=== PATIENT | female | born 1960 | race Caucasian/White ===

== ENCOUNTER 2019-05-18 08:32 | Inpatient (IN) | payer MEDICAID, SELFPAY ==
[2019-05-18 08:33] VITALS: BP 150/121; PULSE 103; RESP 20; TEMP 36.5; O2SAT 93; BMI 27.4
--- NOTE | 2019-05-18 08:39 | ED_ITS ---
Entered by Conrado De Anda, acting as scribe for Js Benavides DO HPI - Psych General: Chief Complaint: Psychiatric Symptoms Stated Complaint: stress Time Seen by Provider: 05/18/19 08:37 History of Present Illness: HPI Narrative: 58 yo female presents with stress. Pt has been off of her medications. Pt is agitated. Pt states that she is having a tantrum right now. Pts feels like everyone in her room could be her murder. Pt has rambling thoughts. Pt states that she is refusing for us to give her anything until she feels safe. Pt states that she doesn't want to harm anyone but feels like people are going to harm her. Pt is refusing for us to check her out. Pt states that she is scared to stay in her appartment because of poltergeist. complaint: feels depressed Onset (ago): week(s) Associated psychiatric symptoms: depression and racing thoughts Associated symptoms: Reports delusions, depression and racing thoughts Review of Systems Const: Denies: fever, chills, body aches, fatigue, malaise or night sweats Eyes: Denies: change in vision or blurry vision ENMT: Denies: throat pain, oral sores/lesions, dental pain, nasal discharge or nasal congestion Card: Denies: chest pain, palpitations, irregular heart rhythm, edema, sy ncope, shortness of breath on exertion, shortness of breath when lying down or leg pain with exertion Resp: Denies: shortness of breath, productive cough, non-productive cough or wheezing GI: Denies: abdominal pain, nausea, vomiting, vomiting blood, coffee grounds in vomit, difficulty swallowing, heartburn/indigestion, diarrhea, constipation, cramping, blood in stool or black tarry stool : Reports: flank pain and painful urination; Denies: urinary frequency, urinary urgency, urinary incontinence or blood in urine Musc: Denies: neck pain, back pain, extremity pain, extremity swelling, joint pain or joint swelling Skin/Breast: Denies: rash, itching or redness Psych: Reports: anxiety, depression, mood swings and paranoia Endo: Denies: excessive urination, excessive thirst, tired all the time or cold intolerance Berhane/Lymph: Denies: easy bruising, easy bleeding, petechiae, enlarged lymph nodes or tender lymph nodes PFSH ED PFSH: Statuses (acute, chronic, etc) shown below reflect problem list status as previously entered and may not be historically accurate Medical History Bipolar 1 disorder (Acute) COPD (chronic obstructive pulmonary disease) (Acute) DVT (deep venous thrombosis) (Acute) Hypercholesteremia (Acute) Surgical History H/O foot surgery (Acute) History of bladder surgery (Acute) Social History Smoking and tobacco status: current every day smoker Physical Exam Const: COMMON NORMALS: average body habitus; negative for oriented x3 GENERAL APPEARANCE: cooperative and comfortable; not well kempt ORIENTATION/CONSCIOUSNESS: Yes awake, Yes oriented to person and Yes oriented to place HENMT: COMMON NORMALS: normocephalic, head/scalp atraumatic, EAC's normal, TM's normal bilaterally, external nose normal, moist oral mucous membranes and oropharynx normal HEAD & SCALP: normocephalic and atraumatic NOSE: external nose normal EXTERNAL AUDITORY CANAL: EAC's normal TYMPANIC MEMBRANE: TM's normal bilaterally MOUTH: oral and palatal mucosa normal, lip normal and tongue normal THROAT: posterior oropharynx normal and tonsils normal Eye: COMMON NORMALS: PERRL, EOMs intact bilaterally, conjunctivae normal and no scleral icterus CONJUNCTIVA: Yes conjunctivae normal PUPIL: Yes PERRL Neck/C-Spine: COMMON NORMALS: full ROM, no lymphadenopathy, supple, no meningeal signs and thyroid normal THYROID: thyroid normal and asymmetrical Lymph: LYMPHATIC: no lymphadenopathy noted Resp: COMMON NORMALS: normal respiratory effort, no retractions, no use of accessory muscles and clear to auscultation bilaterally AUSCULTATION: clear to auscultation bilaterally Cardio: COMMON NORMALS: regular rate and regular rhythm RATE: regular rate RHYTHM: regular rhythm HEART SOUNDS: no murmurs GI: COMMON NORMALS: normal to inspection, nondistended, normoactive bowel sounds, soft to palpation and no hepatosplenomegaly PALPATION: Yes soft and Yes no hepatosplenomegaly : COMMON NORMALS: Yes no CVA tenderness BLADDER/KIDNEY EXAM: Yes no CVA tenderness Back/Pelvis: COMMON NORMALS: no CVA tenderness LUMBAR SPINE/LOWER BACK: Yes normal to inspection Extremity: COMMON NORMALS: no clubbing, cyanosis or edema, no calf tenderness and no pedal edema Neuro: COMMON NORMALS: negative for oriented x3 SENSORIUM/ORIENTATION: Yes oriented to person and Yes oriented to place MENINGEAL SIGNS: Yes no me ningeal signs Psych: APPEARANCE: No well kempt ATTITUDE: Yes paranoid and Yes uncooperative MOOD & AFFECT: Yes depressed mood, Yes anxious, Yes fearful and Yes hostile affect THOUGHT PROCESS: flight of ideas THOUGHT CONTENT: Yes delusion(s) INSIGHT: limited JUDGEMENT: limited Skin: COMMON NORMALS: no rashes or lesions noted and skin turgor normal GENERAL SKIN EXAM: no rashes or lesions noted and turgor normal MDM - Psych Lab Data: Labs: Lab Results 05/18/19 05/18/19 Range/Units 09:16 09:16 WBC 5.7 (4.0-10.0) 10^3/ uL RBC 4.88 (4.1-5.3) 10^6/u L Hgb 13.1 (11.5-15.3) g/dL Hct 41.0 (37.0-47.0) % MCV 84.0 (81-99) fL MCH 26.8 L (28.0-34.0) pg MCHC 32.0 (30.0-36.0) g/dL RDW 13.8 (12.1-15.1) % Plt Count 198 (130-400) 10^3/c mm MPV 9.9 (7.4-10.4) fL Neut % (Auto) 58.1 % Lymph % (Auto) 28.9 % Archuleta % (Auto) 10.5 % Eos % (Auto) 1.2 % Baso % (Auto) 1.1 % Neut # (Auto) 3.3 (1.8-7.7) 10^3/u L Lymph # (Auto) 1.7 (0.8-4.8) 10^3/u L Archuleta # (Auto) 0.6 (0.2-0.9) 10^3/u L Eos # (Auto) 0.1 (0.0-0.8) 10^3/u L Baso # (Auto) 0.1 (0.0-0.1) 10^3/u L Nucleated RBC % (a uto) 0 % Nucleated RBCs # 0.0 /100WBC Sodium 143 (136-145) mmol/L Potassium 3.3 L (3.5-5.1) mmol/L Chloride 104 (98-107) mmol/L Carbon Dioxide 28 (22-29) mmol/L Anion Gap 14.3 (5-19) BUN 8 (6-20) mg/dL Creatinine 0.9 (0.5-0.9) mg/dL GFR Calculation 64.1 L (90-130) mL/min Glucose 124 H (74-109) mg/dL Calcium 9.4 (8.6-10.0) mg/Dl Total Bilirubin 0.3 (0.15-1.2) mg/dL AST 36 H (0-32) U/L ALT 65 H (0-33) U/L Alkaline Phosphata se 85 (35-105) IU/L Total Protein 6.4 L (6.6-8.7) g/dL Albumin 4.3 (3.5-5.2) g/dL Globulin 2.1 (1.3-4.6) g/dL TSH 1.98 (0.27-4.20) uIU/ mL Salicylates < 0.3 L (3-10) mg/dL Acetaminophen < 5.0 L (10-30) ug/mL Ethyl Alcohol < 10 (0-10) mg/dL Discharge Plan Discharge Admit Provider: Giovanni Cruz Clinical Impression: Acute psychosis, Bipolar 1 disorder, Chronic schizophrenia Condition: Stable Coding Level of Care Code ED Laborer Laboratory for Chg Fwd Exam Problem Focused The documentation recorded by the Adilson steiner Kialy, accurately reflects the service I personally performed and the decisions made by , Js Benavides, May 18, 2019 08:32
[2019-05-18 09:24] LABS: Basophils # 0.1 10^3/uL (0.0-0.1); Basophils % 1.1 %; Eosinophils # 0.1 10^3/uL (0.0-0.8); Eosinophils % 1.2 %; Hemoglobin 13.1 g/dL (11.5-15.3); Lymphocytes # 1.7 10^3/uL (0.8-4.8); Lymphocytes % 28.9 %; Mean Corpuscular Hemoglobin 26.8 pg (28.0-34.0); Mean Platelet Volume 9.9 fL (7.4-10.4); Monocytes # 0.6 10^3/uL (0.2-0.9); Monocytes % 10.5 %; Neutrophils # 3.3 10^3/uL (1.8-7.7); Neutrophils % 58.1 %; Nucleated Red Blood Cells % 0 %; Platelet Count 198 10^3/cmm (130-400); Red Blood Count 4.88 10^6/uL (4.1-5.3); Red Cell Distribution Width 13.8 % (12.1-15.1); White Blood Count 5.7 10^3/uL (4.0-10.0)
[2019-05-18 09:52] LABS: Alanine Aminotransferase 65 U/L (0-33); Albumin Level 4.3 g/dL (3.5-5.2); Alkaline Phosphatase 85 IU/L (35-105); Anion Gap 14.3 (5-19); Aspartate Amino Transferase 36 U/L (0-32); Blood Urea Nitrogen 8 mg/dL (6-20); Calcium 9.4 mg/Dl (8.6-10.0); Carbon Dioxide 28 mmol/L (22-29); Chloride 104 mmol/L (98-107); Globulin 2.1 g/dL (1.3-4.6); Glomerular Filtration Rate 64.1 mL/min (90-130); Glucose 124 mg/dL (74-109); Potassium 3.3 mmol/L (3.5-5.1); Sodium 143 mmol/L (136-145); Thyroid Stimulating Hormone 1.98 uIU/mL (0.27-4.20); Total Bilirubin 0.3 mg/dL (0.15-1.2); Total Protein 6.4 g/dL (6.6-8.7)
[2019-05-18 09:57] LABS: Acetaminophen < 5.0 ug/mL (10-30); Alcohol Level < 10 mg/dL (0-10); Salicylate < 0.3 mg/dL (3-10)
[2019-05-18] MEDS: ziprasidone 20 mg/mL SDV 10 MG IM (10:26)
[2019-05-18] MEDS: LORazepam 2 mg/mL INJ 1 mL IM (10:26)
[2019-05-18 12:22] VITALS: RESP 20; TEMP 36.5; O2SAT 93
[2019-05-18 12:36] VITALS: BP 115/76; PULSE 64; RESP 19; TEMP 36.6; O2SAT 94
[2019-05-18 12:47] VITALS: BP 115/76; PULSE 64; RESP 19; TEMP 36.6; O2SAT 94
--- NOTE | 2019-05-18 13:25 | PC.NURSE ---
PATIENT ARRIVED ON UNIT SEDATED. PHYSICAL ASSESSMENT COMPLETED BUT NURSE AND STAFF UNABLE TO ACCOMPLISH ANYTHING ELSE AT THIS TIME.
[2019-05-18 13:34] VITALS: BP 115/76; PULSE 64; RESP 19; TEMP 36.6; O2SAT 94
[2019-05-18] MEDS: nicotine 21 mg Patch 1 PATCH TRANSDERMA (17:23)
[2019-05-18 19:54] VITALS: BP 104/71; PULSE 84; RESP 19; TEMP 36.7; O2SAT 98
[2019-05-18] MEDS: hyDROXYzine 25 mg Capsule 50 MG PO (21:07)
[2019-05-18] MEDS: trazodone 50 mg Tablet PO (21:07)
[2019-05-19 06:00] VITALS: BP 140/81; PULSE 81; RESP 20; TEMP 36.6; O2SAT 97
[2019-05-19] MEDS: OLANZapine ODT 5 MG TABLET PO (10:09)
[2019-05-19] MEDS: hyDROXYzine 25 mg Capsule 50 MG PO (10:21)
--- NOTE | 2019-05-19 10:23 | PC.NURSE ---
PATIENT NOTE: PRN VISTARIL 50MG AND ZYPREXA 5MG GIVEN FOR ANXIETY.
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
[2019-05-19] MEDS: phenazopyridine 100 mg Tablet PO (12:50)
[2019-05-19] MEDS: CLONazepam 1 mg Tablet PO (12:50)
[2019-05-19] MEDS: quetiapine 100 mg Tablet PO ×2 (12:51→18:18)
[2019-05-19 14:00] VITALS: BP 134/85; PULSE 80; RESP 20; TEMP 37.2; O2SAT 96
[2019-05-19] MEDS: nicotine 21 mg Patch 1 PATCH TRANSDERMA (14:35)
[2019-05-19] MEDS: LORazepam 2 mg Tablet PO (18:18)
[2019-05-19 18:35] LABS: Bilirubin Urine 1+ (NEGATIVE); Blood Urine Neg (Negative); Glucose Urine UA Norm (Normal); Ketones Urine Negative (Negative); Nitrate Urine Positive (Negative); Protein Urine Neg (Negative); Urine Appearance Clear (CLEAR); Urine Color Yellow (Yellow); Urobilinogen Urine Norm (Negative); pH Urine 6.5 (5-7)
[2019-05-19 18:36] LABS: Add Urine Microscopic? YES; Leukocyte Esterase Urine Negative (Negative)
--- NOTE | 2019-05-19 18:43 | PC.NURSE ---
PT NOTE: PRN ATIVAN 2 MG GIVEN FOR ANXIETY
[2019-05-19 18:44] LABS: Add Urine Culture? No; Amorphous Sediment Urine TRACE; Bacteria Urine TRACE; Squamous Epithelial Cell Urine 0-4 (0-5); WBC Urine 0-4 /hpf (0-5)
[2019-05-19 18:48] LABS: Amphetamines Screen Urine Negative (Negative); Barbiturates Screen Urine Negative (Negative); Benzodiazepines Screen Urine Negative (Negative); Cocaine Screen Urine Negative (Negative); Opiate Screen Urine Negative (Negative); PCP Screen Urine Negative (Negative); THC Screen Urine Positive (Negative)
[2019-05-19 19:57] VITALS: BP 114/76; PULSE 89; RESP 16; TEMP 36.6; O2SAT 96
[2019-05-20 06:00] VITALS: BP 114/74; PULSE 86; RESP 18; TEMP 36.6; O2SAT 95
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
[2019-05-20] MEDS: quetiapine 100 mg Tablet 200 MG PO ×2 (09:20→14:43)
[2019-05-20] MEDS: ibuprofen 600 mg Tablet PO ×2 (10:50→18:28)
[2019-05-20] MEDS: blistex lip oint 7 gm Tube 1 APPLIC TOPICAL ×2 (11:44→20:50)
[2019-05-20 13:34] VITALS: BP 97/65; PULSE 102; RESP 20; TEMP 36.8; O2SAT 99
[2019-05-20] MEDS: ropinirole 0.25 mg Tablet PO ×2 (14:43→20:50)
[2019-05-20] MEDS: nicotine 21 mg Patch 1 PATCH TRANSDERMA (15:11)
--- NOTE | 2019-05-20 18:13 | PC.NURSE ---
PT VOICED TO STAFF THAT HER LEGS AND FEET WERE SWELLED UP AND PT WANTING SOMETHING FOR THIS. WORT EXTRACTOR ASSESSED PT FEET AND LEGS. NOTED SCANT EDEMA TO BILATERAL LEGS AND PUFFINESS TO BILATERAL FT,BUT NO PITTING EDEMA NOTED. PATIENT'S FEET COOL TO TOUCH AND PT HAS BEEN UP ALL DAY ON HER FT. LCTA ,RESP EVEN AND UNLABORED. NO SOB NOTED. PT ASKING FOR PRN MOTRIN,AND WORT EXTRACTOR ENCOURAGED PT TO KEEP FT ELEVATED. WILL CONT TO MONITOR AND FOLLOW UP NEEDED
--- NOTE | 2019-05-20 18:35 | PC.NURSE ---
PT YELLING IN HER ROOM THAT SHE NEEDS TO GO TO THE EMERGENCY ROOM BECAUSE SHE FEELS SHE HAS BLOOD POISONING IN HER FEET AND LEGS. BP 136/90-99-98.9- SAT 97 %. REQUESTING FOR DR TO BE CALLED SO SHE CAN GET A MEDICAL DR TO COME AND SEE HER. WILL CONTACT DR MURRAY. AWAITING CALL BACK.
[2019-05-20] MEDS: CLONazepam 1 mg Tablet PO (18:51)
--- NOTE | 2019-05-20 18:51 | PC.NURSE ---
Addendum entered by Layne Hewitt LPN 05/20/19 22:03: LATE ENTRY KLONONAOMI FOLLOW UP @ 1999 PRN MEDICATION NOT EFFECTIVE. PT CONTINUES TO BE DELUSIONAL AND HARD TO REDIRECT. WILL CONTINUE TO MONITOR. Original Note: PRN KLONOPIN KLONOPIN 1MG PO PER PT C/O ANXIETY. WILL CONTINUE TO MONITOR FOR MEDICATION EFFECTIVENESS.
[2019-05-20 19:54] LABS: Anion Gap 14.3 (5-19); Blood Urea Nitrogen 17 mg/dL (6-20); Carbon Dioxide 27 mmol/L (22-29); Chloride 102 mmol/L (98-107); Free T4 Free Thyroxine 0.94 ng/dL (0.82-1.77); Glomerular Filtration Rate 64.1 mL/min (90-130); Glucose 98 mg/dL (74-109); Potassium 4.3 mmol/L (3.5-5.1); Sodium 139 mmol/L (136-145); Thyroid Stimulating Hormone 6.39 uIU/mL (0.27-4.20)
[2019-05-20 20:01] VITALS: BP 130/81; PULSE 94; RESP 23; TEMP 37.3
[2019-05-20] MEDS: quetiapine 300 mg Tablet 600 MG PO (20:50)
[2019-05-20 22:00] VITALS: BP 130/81; PULSE 94; RESP 23; TEMP 37.3; O2SAT 98
[2019-05-21 05:20] VITALS: BP 114/97; PULSE 91; RESP 18; TEMP 36.6; O2SAT 97
[2019-05-21] MEDS: ropinirole 0.25 mg Tablet PO (08:13)
--- NOTE | 2019-05-21 09:00 | P.PN_ITS ---
Subjective NPU Subjective: Interval history: Patient has multiple complaints, Starting with a nail fungus that she says needs to be treated immediately. She states that she would like to switch from Seroquel but has no specific medication she would like to take. She says she will not take Prozac, Geodon, Ativan, or trazodone. She claims that she slept for 2 hours last night.. Medications: Medication Review Details: She was compliant with the bedtime Seroquel for the first time. Mental Status Exam MSE Comments: Mental Status Exam: The patient was observed to be less intrusive but still inappropriate. Grooming has improved. Eye contact is good. Psychomotoric activity is unremarkable. Appearance: hygiene is fair; no gross neurological deficits., gait is unremarkable; AIMS=0 Speech: Speech is of normal rate and rhythm and easily understood. Thought processes: Thought processes are Idiosyncratic and often illogical.. Judgment is not adequate for safety. Associations: Loose but without first rank symptoms. Psychotic processes: There is no indication of guarding or paranoia. There is no attention to the internal stimuli. Auditory and visual hallucinations are denied. Judgment: Insight is Poor. Problem solving skills are Not adequate for safety. Orientation: The patient is oriented to person, place time and situation. Memory: no deficits noted in immediate, intermediate, or remote spheres. Attention: The patient is alert and interpersonally engaged. Language: Verbalizations are coherent. Fund of knowledge: Fund of knowledge is adequate. Affect/Mood: Affect is consistent with a Manic mood. She denied suicidal ideation Affective range Constricted Psychosis: perception impaired Biological thinking, cognitive distortion, idiosyncratic logic,; reality testing Impaired Cognition: Patient Appearance: Appropriate Level of Consciousness: Awake, Alert and Follows Commands Patient Cognition Impaired: No Ability to Follow Directions: Poor Patient Orientation (long list): Person, Place, Time, Name, Age, Birthday, Day of Month, Day of Week, Month, Time of Day and Year Hallucination Type: None Delusion Description: Paranoid Ideation and Jainism Thought Process: Confused and Flight of Ideas Affect: Affect Description: Labile Depressive Symptoms: Back Pain, Changes in Appetite, Crying Spells, Difficulty Concentrating, Difficulty Sleeping, Hopelessness, Insomnia, Increased Irritability and Unhappiness Behavior: Patient Behavior: Demanding Speech Pattern: Pressured Vitals/I&O/Wt Last Vital Signs Temp 97.9 F 01/18/20 05:20 Pulse 91 05/21/19 05:20 Resp 18 05/21/19 05:20 BP 114/97 05/21/19 05:20 Pulse Ox 97 05/21/19 05:20 Data NPU : 05/18/19 09:16 05/20/19 19:10 A&P Additional A&P Information Diagnoses:Bipolar disorder?currently manic Assessment:Bipolar disorder?currently manic Patient has been noncompliant with treatment and due to some confusion regarding the treatment plan, she was not given her at bedtime dose of Seroquel. She continues to be manic. Treatment plan: Due to the psychiatric conditions and treatment listed in the Assessment and Plan - the patient requires continued hospitalization. Will provide a safe and therapeutic environment for patient.. Will continue inpatient treatment to allow for medication adjustment and monitoring. Will continue q15 min safety checks. Initial goal is to establish normalized diurnal cycle And reduce symptoms of eddi. Seroquel will be changed to 200 mg 3 times a day and will be observed throughout the day. A bedtime dose may be added as well. We will also supplement bedtime Seroquel with clonazepam if needed for establishing that diurnal cycle. Hospital day #3: Pt has now been compliant with Seroquel for 24 hours and is showing some benefit. She mentioned trying something else and is being given a trial of Invega with the potential to use the monthly injections if effective and tolerated. She is also willing to try Depakote. Plan: continue Seroquel 600 mg at bedtime. Give trial of invega 3 mg in am and depakote 500 mg bid andcl 1 m g bid. Monitor patient's mood, sleep, appetite, and behavior closely. Encourage patient to participate in individual and group therapeutic sessions on the li. Estimated length of stay 5 days The expected benefits and potential side effects of patient's psychiatric medications were discussed with the patient. The patient understands and consents to treatment.CRITERIA FOR DISCHARGE: stable on medications and no longer an im Involuntary Hold Information 96 Hour Hold: 96 Hour Involuntary Admission: Yes 96 Hour Hold Ending Date: 05/24/19 96 Hour Hold Ending Time: 12:00 Attestations NPU Medical Necessity Statement*: Pt requires another 3 nights to complete her 96 hour involuntary commitment. Coding Level of Care Code Acute Fretted Instrument Inspector for Josh Clarke
[2019-05-21] MEDS: paliperidone ER 3 mg Tablet PO (09:08)
[2019-05-21] MEDS: CLONazepam 1 mg Tablet PO ×2 (09:08→17:28)
[2019-05-21 14:00] VITALS: BP 133/83; PULSE 94; RESP 19; TEMP 37.2; O2SAT 95
[2019-05-21] MEDS: nicotine 21 mg Patch 1 PATCH TRANSDERMA (15:16)
[2019-05-21] MEDS: divalproex ER 500 mg Tablet (24H) PO (17:28)
[2019-05-21] MEDS: CLONazepam 1 mg Tablet 2 MG PO (20:28)
[2019-05-21 20:32] VITALS: BP 141/94; PULSE 100; RESP 21; TEMP 36.4; O2SAT 98
--- NOTE | 2019-05-21 20:32 | PC.NURSE ---
PT REFUSED 2100 SEROQUEL.
--- NOTE | 2019-05-21 23:33 | PC.NURSE ---
EARLY IN SHIFT PT SITTING IN HALLWAY COLORING. WHEN APPROACHED BY LOCATION AND MEASUREMENT TECHNICIAN PT VERBALIZED THAT SHE WAS NOT DOING VERY WELL. HAD MULTIPLE SOMATIC COMPLAINTS SUCH C/O FOOT FUNGAS, SWOLLEN FEET, AND HANG NAIL. 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 Pt also c/o diarrhea and stated that she and others on the unit had developed salmonella poisoning from lunch and dinner that had been served today. Pt slightly calmer but later on using the phone and telling person on line that they would be sorry if anything happened to her mom amy. Refused bedtime dose of SEROQUEL bud did take her Klonipin. Has appeared to be calmmer since receving medication. will continue to monitor.
[2019-05-22 06:00] VITALS: BP 106/70; PULSE 83; RESP 20; TEMP 36.7
--- NOTE | 2019-05-22 08:18 | PM.NPN ---
Subjective NPU Subjective: Interval history: Patient says she refused Seroquel last night because she is staurated with Seroquel and it is coming out through her pores. She saw an ad on TV for Vraylar and believes that she should be on that medication. Medications: Medication Review Details: She was non- compliant with the bedtime Seroquel again Mental Status Exam MSE Comments: Mental Status Exam: The patient was observed to be less intrusive but still inappropriate. Grooming has improved. Eye contact is good. Psychomotoric activity is unremarkable. Appearance: hygiene is fair; no gross neurological deficits., gait is unremarkable; AIMS=0 Speech: Speech is of normal rate and rhythm and easily understood. Thought processes: Thought processes are Idiosyncratic and often illogical.. Judgment is not adequate for safety. Associations: Loose but without first rank symptoms. Psychotic processes: There is no indication of guarding or paranoia. There is no attention to the internal stimuli. Auditory and visual hallucinations are denied. Judgment: Insight is Poor. Problem solving skills are Not adequate for safety. Orientation: The patient is oriented to person, place time and situation. Memory: no deficits noted in immediate, intermediate, or remote spheres. Attention: The patient is alert and interpersonally engaged. Language: Verbalizations are coherent. Fund of knowledge: Fund of knowledge is adequate. Affect/Mood: Affect is consistent with a Manic mood. She denied suicidal ideation Affective range Constricted Psychosis: perception impaired Biological thinking, cognitive distortion, idiosyncratic logic,; reality testing Impaired Cognition: Patient Appearance: Appropriate Level of Consciousness: Awake, Alert and Follows Commands Patient Cognition Impaired: No Ability to Follow Directions: Poor Patient Orientation (long list): Person, Place, Time, Name, Age, Birthday, Day of Month, Day of Week, Month, Time of Day and Year Hallucination Type: None Delusion Description: Paranoid Ideation and Adventist Thought Process: Flight of Ideas Affect: Affect Description: Appropriate and Calm Depressive Symptoms: Back Pain, Changes in Appetite, Crying Spells, Difficulty Concentrating, Difficulty Sleeping, Hopelessness, Insomnia, Increased Irritability and Unhappiness Behavior: Patient Behavior: Appropriate Speech Pattern: Clear Vitals/I&O/Wt Last Vital Signs Temp 98.1 F 05/22/19 06:00 Pulse 83 05/22/19 06:00 Resp 20 H 05/22/19 06:00 BP 106/70 05/22/19 06:00 Pulse Ox 98 05/21/19 20:32 Weight last 48 hrs Weight 84.187 kg Weight 84.187 kg Data NPU : 05/18/19 09:16 05/20/19 19:10 A&P Additional A&P Information Diagnoses:Bipolar disorder?currently manic Assessment:Bipolar disorder?currently manic Patient has been noncompliant with treatment and due to some confusion regarding the treatment plan, she was not given her at bedtime dose of Seroquel. She continues to be manic. Treatment plan: Due to the psychiatric conditions and treatment listed in the Assessment and Plan - the patient requires continued hospitalization. Will provide a safe and therapeutic environment for patient.. Will continue inpatient treatment to allow for medication adjustment and monitoring. Will continue q15 min safety checks. Initial goal is to establish normalized diurnal cycle And reduce symptoms of eddi. Seroquel will be changed to 200 mg 3 times a day and will be observed throughout the day. A bedtime dose may be added as well. We will also supplement bedtime Seroquel with clonazepam if needed for establishing that diurnal cycle. Hospital day #3: Pt has now been compliant with Seroquel for 24 hours and is showing some benefit. She mentioned trying something else and is being given a trial of Invega with the potential to use the monthly injections if effective and tolerated. She is also willing to try Depakote. Plan: continue Seroquel 600 mg at bedtime. Give trial of invega 3 mg in am and depakote 500 mg bid andcl 1 mg bid. Hospital day #4: Pt again non-compliant with hs Seroquel. Continues to be illogical and displays errors in memory and train of thought. (+) flight of ideas. Not adequate for safety. Pt agreed to extra 300 mg of Seroquel this am and will be complaint with hs seroquel tonight. Monitor patient's mood, sleep, appetite, and behavior closely. Encourage patient to participate in individual and group therapeutic sessions on the li. Estimated length of stay 4 days The expected benefits and potential side effects of patient's psychiatric medications were discussed with the patient. The patient understands and consents to treatment.CRITERIA FOR DISCHARGE: stable on medications and no longer an im Involuntary Hold Information 96 Hour Hold: 96 Hour Involuntary Admission: Yes 96 Hour Hold Ending Date: 05/24/19 96 Hour Hold Ending Time: 12:00 Attestations NPU Medical Necessity Statement*: pt to remain another 3 nights for the completion of her court ordered commitment. Coding Level of Care Code Acute Fire Hydrant Operator for Josh Clarke
[2019-05-22] MEDS: paliperidone ER 3 mg Tablet PO (09:06)
[2019-05-22] MEDS: CLONazepam 1 mg Tablet PO ×2 (09:07→17:39)
[2019-05-22] MEDS: quetiapine 300 mg Tablet PO (09:07)
[2019-05-22] MEDS: divalproex ER 500 mg Tablet (24H) PO ×2 (09:07→17:39)
[2019-05-22] MEDS: acetaminophen 325 mg Tablet 650 MG PO (09:08)
[2019-05-22 14:00] VITALS: BP 104/71; PULSE 81; RESP 18; TEMP 36.7; O2SAT 95
[2019-05-22] MEDS: nicotine 21 mg Patch 1 PATCH TRANSDERMA (19:21)
[2019-05-22 19:55] VITALS: BP 93/66; PULSE 118; RESP 19; TEMP 36.6; O2SAT 96
[2019-05-22] MEDS: quetiapine 300 mg Tablet 600 MG PO (21:54)
[2019-05-23 06:00] VITALS: BP 105/72; PULSE 79; RESP 16; TEMP 36.6; O2SAT 95
[2019-05-23] MEDS: paliperidone ER 3 mg Tablet PO (09:53)
[2019-05-23] MEDS: divalproex ER 500 mg Tablet (24H) PO ×2 (09:53→17:47)
[2019-05-23] MEDS: CLONazepam 1 mg Tablet PO ×2 (09:53→17:47)
--- NOTE | 2019-05-23 10:02 | P.PN_ITS ---
Subjective NPU Subjective: Interval history: Patient states that she has a psychotherapy appointment on and she would like to be discharged 24 hours before then so that she can make sure she makes that appointment. She is distressed at not wanting to take the medication for her foot fungus because the name of the medication that does not sound like a reasonable medication. As an example, she said that she refused to take the Trileptal because it had reference the idea of having 3 lips. She can tell whether medication is going to work because of the way the names sounds. She continues to complain of both daytime and nighttime nightmares. She denies side effects to medications. She understands that her 96 hour involuntary commitment tomorrow but is willing to sign in so that we can complete her medication management.She also continues to complain about lower extremity swelling. Medications: Medication Review Details: The patient did not get to sleep last night until 1 AM and that she remained sleeping only 4-5 hours.Blood pressure remains within normal limits. Mental Status Exam MSE Comments: Mental Status Exam: The patient was No longer inappropriate. Grooming has improved. Eye contact is good. Psychomotoric activity is unremarkable. Appearance: hygiene is fair; no gross neurological deficits., gait is unremarkable; AIMS=0 Speech: Speech is of normal rate and rhythm and easily understood. Thought processes: Thought processes are Idiosyncratic and often illogical.. Judgment is adequate for safety As she is able to assess the potential for threat and problem-solving is adequate even if not optimal.. Associations: Loose but without first rank symptoms. Psychotic processes: There is no indication of guarding or paranoia. There is no attention to the internal stimuli. Auditory and visual hallucinations are denied. Judgment: Insight is Poor. Problem solving skills are adequate for safety. Orientation: The patient is oriented to person, place time and situation. Memory: no deficits noted in immediate, intermediate, or remote spheres. Attention: The patient is alert and interpersonally engaged. Language: Verbalizations are coherent. Fund of knowledge: Fund of knowledge is adequate. Affect/Mood: Affect is consistent with a hypo-manic mood. She denied suicidal ideation Affective range Within normal limits Psychosis: perception impaired By her loose associations Cognition: Patient Appearance: Appropriate Level of Consciousness: Awake, Alert and Follows Commands Patient Cognition Impaired: No Ability to Follow Directions: Poor Patient Orientation (long list): Person, Place, Time, Name, Age, Birthday, Day of Month, Day of Week, Month, Time of Day and Year Hallucination Type: None Delusion Description: Paranoid Ideation and Hindu Thought Process: Disorganized Affect: Affect Description: Appropriate Depressive Symptoms: Back Pain, Changes in Appetite, Crying Spells, Difficulty Concentrating, Difficulty Sleeping, Hopelessness, Insomnia, Increased Irritability and Unhappiness Behavior: Patient Behavior: Appropriate Speech Pattern: Appropriate Vitals/I&O/Wt Last Vital Signs Temp 97.8 F 05/23/19 06:00 Pulse 79 05/23/19 06:00 Resp 16 05/23/19 06:00 BP 105/72 05/23/19 06:00 Pulse Ox 95 05/23/19 06:00 Weight last 48 hrs Weight 84.187 kg Weight 84.187 kg Data NPU : 05/18/19 09:16 05/20/19 19:10 A&P Additional A&P Information Diagnoses:Bipolar disorder?currently manic Assessment:Bipolar disorder?currently manic Patient has been noncompliant with treatment and due to some confusion regarding the treatment plan, she was not given her at bedtime dose of Seroquel. She continues to be manic. Treatment plan: Due to the psychiatric conditions and treatment listed in the Assessment and Plan - the patient requires continued hospitalization. Will provide a safe and therapeutic environment for patient.. Will continue inpatient treatment to allow for medication adjustment and monitoring. Will continue q15 min safety checks. Initial goal is to establish normalized diurnal cycle And reduce symptoms of eddi. Seroquel will be changed to 200 mg 3 times a day and will be observed throughout the day. A bedtime dose may be added as well. We will also supplement bedtime Seroquel with clonazepam if needed for establishing that diurnal cycle. Hospital day #3: Pt has now been compliant with Seroquel for 24 hours and is showing some benefit. She mentioned trying something else and is being given a trial of Invega with the potential to use the monthly injections if effective and tolerated. She is also willing to try Depakote. Plan: continue Seroquel 600 mg at bedtime. Give trial of invega 3 mg in am and depakote 500 mg bid andcl 1 mg bid. Hospital day #4: Pt again non-compliant with hs Seroquel. Continues to be illogical and displays errors in memory and train of thought. (+) flight of ideas. Not adequate for safety. Pt agreed to extra 300 mg of Seroquel this am and will be complaint with hs michelle reyes. Hospital day #5: Patient states that she has a psychotherapy appointment on and she would like to be discharged 24 hours before then so that she can make sure she makes that appointment. She is distressed at not wanting to take the medication for her foot fungus because the name of the medication that does not sound like a reasonable medication. As an example, she said that she refused to take the Trileptal because it had reference the idea of having 3 lips. She can tell whether medication is going to work because of the way the names sounds. She continues to complain of both daytime and nighttime nigh tmares. She denies side effects to medications. She understands that her 96 hour involuntary commitment tomorrow but is willing to sign in so that we can complete her medication management.She also continues to complain about lower extremity swelling. Plan: We'll start on low sodium diet to address her lower extremity swelling. Hydroxyzine discontinued. Paliperidone discontinued. Prazosin initiated at 1 mg at bedtime. This is day #3 of Depakote. Depakote level tomorrow.We'll also start a medication for her foot fungus. Monitor patient's mood, sleep, appetite, and behavior closely. Encourage patient to participate in individual and group therapeutic sessions on the li. Estimated length of stay 3 days The expected benefits and potential side effects of patient's psychiatric medica tions were discussed with the patient. The patient understands and consents to treatment.CRITERIA FOR DISCHARGE: stable on medications and no longer an im Involuntary Hold Information 96 Hour Hold: 96 Hour Involuntary Admission: Yes 96 Hour Hold Ending Date: 05/24/19 96 Hour Hold Ending Time: 12:00 Attestations NPU Medical Necessity Statement*: Will remain in the hospital 2 more nights so that we can determine that she will be safe and not an imminent risk to self or others before discharge. Coding Level of Care Code Acute Steel Wheel Engraver for Josh Clarke
[2019-05-23] MEDS: acetaminophen 325 mg Tablet 650 MG PO ×2 (10:58→21:58)
[2019-05-23 14:00] VITALS: BP 107/75; PULSE 90; RESP 20; TEMP 36.5; O2SAT 99
[2019-05-23] MEDS: nicotine 21 mg Patch 1 PATCH TRANSDERMA (20:09)
[2019-05-23] MEDS: prazosin 1 mg Capsule PO (20:09)
[2019-05-23] MEDS: quetiapine 300 mg Tablet 600 MG PO (20:09)
[2019-05-23 20:32] VITALS: BP 113/75; PULSE 99; RESP 16; TEMP 36.8; O2SAT 96
[2019-05-24 05:09] VITALS: BP 113/76; PULSE 99; RESP 16; TEMP 36.5; O2SAT 97
[2019-05-24] MEDS: acetaminophen 325 mg Tablet 650 MG PO (06:00)
[2019-05-24] MEDS: divalproex ER 500 mg Tablet (24H) PO (09:33)
[2019-05-24] MEDS: CLONazepam 1 mg Tablet PO (09:33)
[2019-05-24] MEDS: nicotine 21 mg Patch 1 PATCH TRANSDERMA (11:44)
--- NOTE | 2019-05-24 12:41 | P.PN_ITS ---
Subjective NPU Subjective: Interval history: Patient states that she has a psychotherapy appointment on and she would like to be discharged 24 hours before then so that she can make sure she makes the appointment. She is willing o tsign in for another night stay. Medications: Medication Review Details: Labs have been ordered. We are anxiously awaiting the results . Mental Status Exam MSE Comments: Mental Status Exam: The patient was No longer inappropriate. Grooming has improved. Eye contact is good. Psychomotoric activity is unremarkable. Appearance: hygiene is fair; no gross neurological deficits., gait is unremarkable; AIMS=0 Speech: Speech is of normal rate and rhythm and easily understood. Thought processes: Thought processes are still Idiosyncratic and it is believed that this may be her baseline thought processes. Judgment is adequate for safety As she is able to assess the potential for threat and problem-solving is adequate even if not optimal.. Associations: Loose but without first rank symptoms. Psychotic processes: There is no indication of guarding or paranoia. There is no attention to the internal stimuli. Auditory and visual hallucinations are denied. Judgment: Insight is Poor. Problem solving skills are adequate for safety. Orientation: The patient is oriented to person, place time and situation. Memory: no deficits noted in immediate, intermediate, or remote spheres. Attention: The patient is alert and interpersonally engaged. Language: Verbalizations are coherent. Fund of knowledge: Fund of knowledge is adequate. Affect/Mood: Affect is consistent with a euthymic mood. She denied suicidal ideation Affective range Within normal limits Psychosis: perception impaired By her loose associations Cognition: Patient Appearance: Appropriate Level of Consciousness: Awake, Alert and Follows Commands Patient Cognition Impaired: No Ability to Follow Directions: Poor Patient Orientation (long list): Person, Place, Time, Name, Age, Birthday, Day of Month, Day of Week, Month, Time of Day and Year Hallucination Type: None Delusion Description: Paranoid Ideation and Tenriism Thought Process: Disorganized and Flight of Ideas Affect: Affect Description: Labile Depressive Symptoms: Back Pain, Changes in Appetite, Crying Spells, Difficulty Concentrating, Difficulty Sleeping, Hopelessness, Insomnia, Increased Irritability and Unhappiness Behavior: Patient Behavior: Cooperative Speech Pattern: Clear Vitals/I&O/Wt Last Vital Signs Temp 97.7 F 05/24/19 05:09 Pulse 99 05/24/19 05:09 Resp 16 05/24/19 05:09 BP 113/76 05/24/19 05:09 Pulse Ox 97 05/24/19 05:09 Data NPU : 05/18/19 09:16 05/20/19 19:10 A&P Additional A&P Information Diagnoses:Bipolar disorder?most recently manic Assessment:Bipolar disorder?eddi has resolved Patient has been noncompliant with treatment and due to some confusion regarding the treatment plan, she was not given her at bedtime dose of Seroquel. She continues to be manic. Treatment plan: Due to the psychiatric conditions and treatment listed in the Assessment and Plan - the patient requires continued hospitalization. Will provide a safe and therapeutic environment for patient.. Will continue inpatient treatment to allow for medication adjustment and monitoring. Will continue q15 min safety checks. Initial goal is to establish normalized diurnal cycle And reduce symptoms of eddi. Seroquel will be changed to 200 mg 3 times a day and will be observed throughout the day. A bedtime dose may be added as well. We will also supplement bedtime Seroquel with clonazepam if needed for establishing that diurnal cycle. Hospital day #3: Pt has now been compliant with Seroquel for 24 hours and is showing some benefit. She mentioned trying something else and is being given a trial of Invega with the potential to use the monthly injections if effective and tolerated. She is also willing to try Depakote. Plan: continue Seroquel 600 mg at bedtime. Give trial of invega 3 mg in am and depakote 500 mg bid andcl 1 mg bid. Hospital day #4: Pt again non-compliant with hs Seroquel. Continues to be illogical and displays errors in memory and train of thought. (+) flight of ideas. Not adequate for safety. Pt agreed to extra 300 mg of Seroquel this am and will be complaint with hs seroquel tonight. Hospital day #5: Patient states that she has a psychotherapy appointment on and she would like to be discharged 24 hours before then so that she can make sure she makes that appointment. She is distressed at not wanting to take the medication for her foot fungus because the name of the medication that does not sound like a reasonable medication. As an example, she said that she refused to take the Trileptal because it had reference the idea of having 3 lips. She can tell whether medication is going to work because of the way the names sounds. She continues to complain of both daytime and nighttime nightmares. She denies side effects to medications. She understands that her 96 hour involuntary commitment tomorrow but is willing to sign in so that we can complete her medication management.She also continues to complain about lower extremity swelling. Plan: We'll start on low sodium diet to address her lower extremity swelling. Hydroxyzine discontinued. Paliperidone discontinued. Prazosin initiated at 1 mg at bedtime. This is day #3 of Depakote. Depakote level tomorrow.We'll also start a medication for her foot fungus. Hospital day #6: She appears to be approaching what is believed to be her baseline. She continues to display some evidence of idiosyncratic thought. She is expansive and quite loud. However she is demonstrating adequate problem solving skills that is not thought to be a danger to self or others. She does display significant swelling in her feet which appears to be a new phenomenon. Consideration that this may be a side effect of the initiation of Depakote. It is unclear why we have yet to get a Depakote level result. Basic metabolic panel was also ordered.Plan: Patient is moving to voluntary status. We will consider discontinuation of the Depakote unless we can find another reason for her leg swelling. Monitor patient's mood, sleep, appetite, and behavior closely. Encourage patient to participate in individual and group therapeutic sessions on the li. Estimated length of stay 3 days The expected benefits and potential side effects of patient's psychiatric medications were discussed with the patient. The patient understands and consents to treatment.CRITERIA FOR DISCHARGE: stable on medications and no longer an im Involuntary Hold Information 96 Hour Hold: 96 Hour Involuntary Admission: Yes 96 Hour Hold Ending Date: 05/24/19 96 Hour Hold Ending Time: 12:00 Attestations NPU Medical Necessity Statement*: Patient will remain in the hospital 1 more night to assess swelling in her legs decide whether to continue Depakote. Coding Level of Care Code Acute It Sales Representative for Josh Clarke
[2019-05-24 14:00] VITALS: BP 148/76; PULSE 104; RESP 18; TEMP 37.2; O2SAT 95
[2019-05-24 16:07] VITALS: BP 148/76; PULSE 104; RESP 18; TEMP 37.2; O2SAT 95
[2019-05-24 16:23] VITALS: BP 148/76; PULSE 104; RESP 18; TEMP 37.2; O2SAT 95
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
== END 2019-05-24 16:59 | disposition home or self-care (01) | DRG 885 ==
LOC: ER 11:51 → NP 11:56
PROVIDERS: Psychiatry & Neurology Psychiatry; Admitting Provider Psychiatry & Neurology Psychiatry; Emergency Provider Family Medicine; Family Provider Family Medicine; PCP Family Medicine; Visit Provider Psychiatry & Neurology Psychiatry
DX: F31.9 Bipolar disorder, unspecified (principal); Z79.899 Other long term (current) drug therapy; Z91.041 Radiographic dye allergy status; Z88.8 Allergy status to other drugs, medicaments and biological substances; J44.9 Chronic obstructive pulmonary disease, unspecified; K21.9 Gastro-esophageal reflux disease without esophagitis; F43.10 Post-traumatic stress disorder, unspecified; E78.00 Pure hypercholesterolemia, unspecified; Z86.718 Personal history of other venous thrombosis and embolism; I10 Essential (primary) hypertension; Z79.52 Long term (current) use of systemic steroids; Z91.14 Patient's other noncompliance with medication regimen
CPT/HCPCS: 12345; 36415; 80048; 80053; 80307; 81003; 84439; 84443; 85025; 96372; 99284; J2060; J3486; J3490

== ENCOUNTER 2019-05-18 08:32 | Emergency (ER) | payer MEDICAID, SELFPAY | END 2019-05-18 12:25 | disposition admitted as inpatient to this hospital (09) | LOC: ER 06-17 11:37 | PROVIDERS: Emergency Provider Family Medicine; Family Provider Family Medicine; PCP Family Medicine | DX: F23 Brief psychotic disorder (principal); F31.9 Bipolar disorder, unspecified; F20.9 Schizophrenia, unspecified; F17.210 Nicotine dependence, cigarettes, uncomplicated; J44.9 Chronic obstructive pulmonary disease, unspecified; Z86.718 Personal history of other venous thrombosis and embolism; E78.00 Pure hypercholesterolemia, unspecified | CPT/HCPCS: 36415; 80053; 80307; 84443; 85025; 96372; 99284; 99285; J2060; J3486 ==

== ENCOUNTER → 2019-05-26 15:33 | Outpatient (BNVA) | payer MEDICAID, SELFPAY | PROVIDERS: Family Provider Family Medicine; PCP Family Medicine; Visit Provider Emergency Medicine | DX: J11.1 Influenza due to unidentified influenza virus with other respiratory manifestations (principal); R60.9 Edema, unspecified | CPT/HCPCS: 87804 ==

== ENCOUNTER → 2019-05-30 14:27 | Outpatient (BNVA) | payer MEDICAID, SELFPAY | PROVIDERS: Family Provider Family Medicine; PCP Family Medicine; Visit Provider Family Medicine | DX: I10 Essential (primary) hypertension (principal); J44.9 Chronic obstructive pulmonary disease, unspecified; R60.9 Edema, unspecified; E78.00 Pure hypercholesterolemia, unspecified; F31.9 Bipolar disorder, unspecified; F43.10 Post-traumatic stress disorder, unspecified; G25.81 Restless legs syndrome; Z13.1 Encounter for screening for diabetes mellitus; Z83.3 Family history of diabetes mellitus | CPT/HCPCS: 80053; 80061; 83036 ==

== ENCOUNTER → 2019-06-08 16:27 | Outpatient (BNVA) | payer MEDICAID, SELFPAY | PROVIDERS: Family Provider Family Medicine; PCP Family Medicine; Visit Provider Nurse Practitioner Family | DX: J11.1 Influenza due to unidentified influenza virus with other respiratory manifestations (principal); J44.1 Chronic obstructive pulmonary disease with (acute) exacerbation | CPT/HCPCS: 87804 ==

== ENCOUNTER → 2019-07-05 15:05 | Outpatient (BNVA) | payer MEDICAID, SELFPAY | PROVIDERS: Family Provider Family Medicine; PCP Family Medicine; Visit Provider Nurse Practitioner Family | DX: N30.10 Interstitial cystitis (chronic) without hematuria (principal) | CPT/HCPCS: 81001 ==

== ENCOUNTER → 2020-05-08 15:40 | Outpatient (BNVA) | payer MEDICAID, SELFPAY | PROVIDERS: Family Provider Family Medicine; PCP Family Medicine; Visit Provider Family Medicine | DX: E78.00 Pure hypercholesterolemia, unspecified (principal); I10 Essential (primary) hypertension; J44.9 Chronic obstructive pulmonary disease, unspecified; J41.0 Simple chronic bronchitis; F31.9 Bipolar disorder, unspecified; M77.8 Other enthesopathies, not elsewhere classified | CPT/HCPCS: 80053; 80061 ==

== ENCOUNTER → 2020-09-13 10:38 | Outpatient (BNVA) | payer MEDICAID, SELFPAY | PROVIDERS: Family Provider Family Medicine; PCP Family Medicine; Visit Provider Family Medicine | DX: J44.1 Chronic obstructive pulmonary disease with (acute) exacerbation (principal); T50.B95A Adverse effect of other viral vaccines, initial encounter | CPT/HCPCS: 80053; 85025 ==

== ENCOUNTER → 2020-10-19 10:54 | Outpatient (BNVA) | payer MEDICAID, SELFPAY | PROVIDERS: Family Provider Family Medicine; PCP Family Medicine; Visit Provider Family Medicine | DX: G25.81 Restless legs syndrome (principal); R79.89 Other specified abnormal findings of blood chemistry; J41.0 Simple chronic bronchitis; F99 Mental disorder, not otherwise specified; F51.05 Insomnia due to other mental disorder; N30.10 Interstitial cystitis (chronic) without hematuria; M79.604 Pain in right leg; M79.605 Pain in left leg; F17.210 Nicotine dependence, cigarettes, uncomplicated | CPT/HCPCS: 80053; 82607; 82746; 83540; 83735; 84439; 84443; 84481 ==

== ENCOUNTER → 2020-10-22 10:22 | Outpatient (BNVA) | payer MEDICAID, SELFPAY | PROVIDERS: Family Provider Family Medicine; PCP Family Medicine; Visit Provider Nurse Practitioner Family | DX: N30.10 Interstitial cystitis (chronic) without hematuria (principal); F31.2 Bipolar disorder, current episode manic severe with psychotic features; F17.210 Nicotine dependence, cigarettes, uncomplicated; F99 Mental disorder, not otherwise specified; F51.05 Insomnia due to other mental disorder | CPT/HCPCS: 81000; 87086 ==

== ENCOUNTER → 2020-12-06 17:41 | Outpatient (BNVA) | payer MEDICAID, SELFPAY | PROVIDERS: PCP Family Medicine; Visit Provider Emergency Medicine | DX: N39.0 Urinary tract infection, site not specified (principal) | CPT/HCPCS: 81000; 87086 ==

== ENCOUNTER → 2021-01-11 16:55 | Outpatient (BNVA) | payer MEDICAID, SELFPAY | PROVIDERS: PCP Family Medicine; Visit Provider Emergency Medicine | DX: N30.10 Interstitial cystitis (chronic) without hematuria (principal); R30.0 Dysuria | CPT/HCPCS: 81000; 87086 ==

== ENCOUNTER → 2021-01-24 15:00 | Outpatient (BNVA) | payer MEDICAID, SELFPAY | PROVIDERS: PCP Family Medicine; Visit Provider Nurse Practitioner Family | DX: N39.0 Urinary tract infection, site not specified (principal) | CPT/HCPCS: 81003; 87086 ==

== ENCOUNTER 2021-01-31 10:27 | Outpatient (CLI) | payer MEDICAID, SELFPAY ==
--- NOTE | 2021-01-31 10:38 | XR_ITS ---
WS: [id number] Exam: XR lumbar spine 2-3V* [id number] Date/Time of Exam: 01/31/2021 10:45 AM Reason For Exam: M79.604 - Pain in right leg No acute fracture or dislocation. Degenerative vacuum disc at L5-S1. Spondylosis of the L4, L5 and S1 . Facet DJD at L4-5 and L5-S1. 3 mm calcification superimposes the lower pole the left kidney and may represent a renal stone. XR/XR lumbar spine 2-3V* [id number] IMPRESSION: 1. Moderate degenerative changes of the lower lumbar spine as detailed above. 2. No fracture or malalignment. 3. 3 mm calcification seen in the region of the left kidney that may represent a small renal stone.
--- NOTE | 2021-01-31 10:38 | US_ITS ---
WS: [id number] Complete ABDOMINAL ULTRASOUND HISTORY: N30.10 - Interstitial cystitis (chronic) without hematuria COMPARISON: None available. Liver: 14.8 cm in length. Liver is normal size. Mild diffuse hepatic steatosis. Ill-defined area of d ecreased echogenicity in the RIGHT lobe the liver at the level of the kidney. There is mild bulging o f the contour of the liver. This mass is very slightly hypoechoic to the adjacent normal parenchyma. Mass measures 7.0 x 7.3 x 4.4 cm. Minimal increased vascularity. No bile duct dilatation. Gallbladder: Small contracted gallbladder with stones and shadowing from the region of the gallbladde r fossa. Gallbladder wall thickness: 0.3 cm. Pancreas: Poorly visualized. CBD: 0.4 cm. Right kidney: 9.7 cm x 3.3 cm x 4.6 cm. No mass, cortical thickening or hydronephrosis. Left kidney: 10.6 cm x 4.0 cm x 4.7 cm. No mass, cortical thickening or hydronephrosis. Spleen: Normal size and echogenicity. Abdominal aorta and IVC are within normal limits. No ascites. US/US abdomen complete* [id number] IMPRESSION: 1. Abnormal RIGHT lobe of the liver. Suspect mass. Ill-defined mass with mild bulging of the hepatic capsule. Recommend follow-up CT abdomen and pelvis with IV and oral contrast. 2. Gallbladder is not identified as a normal structure. Favor the gallbladder is contracted with stones and shadowing in the gallbladder fossa. This can also be reevaluated on the CT.
== END 2021-01-31 10:28 | disposition home or self-care (01) ==
LOC: US 10:30
PROVIDERS: PCP Family Medicine; Visit Provider Nurse Practitioner Family
DX: N30.10 Interstitial cystitis (chronic) without hematuria (principal); M79.605 Pain in left leg; M79.604 Pain in right leg; N28.89 Other specified disorders of kidney and ureter
CPT/HCPCS: 72100; 76700

== ENCOUNTER → 2021-02-13 17:54 | Outpatient (BNVA) | payer MEDICAID, SELFPAY | PROVIDERS: PCP Family Medicine; Visit Provider Family Medicine | DX: R16.0 Hepatomegaly, not elsewhere classified (principal); J44.9 Chronic obstructive pulmonary disease, unspecified; E78.00 Pure hypercholesterolemia, unspecified; I10 Essential (primary) hypertension; R10.11 Right upper quadrant pain; M51.36 Other intervertebral disc degeneration, lumbar region; M54.50 Low back pain, unspecified; G89.29 Other chronic pain; L91.8 Other hypertrophic disorders of the skin; Z13.220 Encounter for screening for lipoid disorders; Z13.6 Encounter for screening for cardiovascular disorders | CPT/HCPCS: 80053; 80061; 85025 ==

== ENCOUNTER → 2021-02-15 15:38 | Outpatient (BNVA) | payer MEDICAID, SELFPAY | PROVIDERS: PCP Family Medicine; Referring Provider Emergency Medicine; Visit Provider Obstetrics & Gynecology | DX: G47.00 Insomnia, unspecified (principal); I10 Essential (primary) hypertension; Z79.899 Other long term (current) drug therapy | CPT/HCPCS: 84443 ==

== ENCOUNTER → 2021-02-27 11:19 | Outpatient (BNVA) | payer MEDICAID, SELFPAY | PROVIDERS: PCP Family Medicine; Visit Provider Family Medicine | DX: D49.2 Neoplasm of unspecified behavior of bone, soft tissue, and skin (principal) | CPT/HCPCS: 88304 ==

== ENCOUNTER 2021-04-10 13:42 | Outpatient (CLI) | payer MEDICAID, SELFPAY ==
--- NOTE | 2021-04-10 13:49 | CT_ITS ---
WS: [id number] LDCT LUNG CANCER SCREENING TECHNIQUE: Noncontrast CT of the chest with coronal and sagittal reformatted images. CLINICAL INFORMATION: F17.210 - Nicotine dependence, cigarettes, uncomplicated COMPARISON: CT chest 5 DLP: 53.4 mGy.cm DIvol: 1.[address] scans at [facility] use at least one of these dose optimization techniques: automat ed exposure control; mA and/or kV adjustment per patient size (includes targeted exams where dose is matched to clinical indication); or iterative reconstruction. FINDINGS: Both lungs are well aerated. No acute pulmonary infiltrates. No suspicious pulmonary parenchymal norm alities. No mediastinal or hilar lymphadenopathy. Normal caliber thoracic aorta. Adrenal glands appea r normal. No axillary lymphadenopathy. Mild thoracic curve. Mild spondylitic changes thoracic spine. CT/CT lung screening [id number] IMPRESSION: LUNG-RADS: 1-Negative FOLLOW UP: 12 Month: Continue annual screening with LDCT
== END 2021-04-10 13:43 | disposition home or self-care (01) ==
PROVIDERS: PCP Family Medicine; Visit Provider Internal Medicine Critical Care Medicine
DX: Z12.2 Encounter for screening for malignant neoplasm of respiratory organs (principal); F17.210 Nicotine dependence, cigarettes, uncomplicated
CPT/HCPCS: 71271

== ENCOUNTER 2021-04-12 10:23 | Outpatient (CLI) | payer MEDICAID, SELFPAY ==
[2021-04-12] MEDS: barium sulfate 450 mL Oral Susp PO (11:19)
--- NOTE | 2021-04-12 11:30 | CT_ITS ---
WS: [id number] Exam: CT abdomen pelvis wo con [id number] Date/Time of Exam: 04/12/2021 11:00 AM Reason For Exam: R16.0 - Hepatomegaly, not elsewhere classified DLP: 1123.[address] scans at [facility] use at least one of these dose optimization techniques: automated e xposure control; mA and/or kV adjustment per patient size (includes targeted exams where dose is matc hed to clinical indication); or iterative reconstruction. Compared to study 06/03/2017. Lower lung zones are clear. Mild hepatomegaly. The liver measures about 19.1 cm at greatest dimension . No calcified stones in the gallbladder. The stomach, spleen and pancreas appear normal. The abdomin al aorta is normal in caliber. Normal adrenal glands. 3 mm nonobstructing stone in the left kidney. P robable tiny left renal cyst. The right kidney is unremarkable. No free air. No lymphadenopathy. Smal l bowel loops are normal in caliber. Moderate amount of stool in the colon. Normal appendix visualize d. Diverticulosis of the descending and sigmoid colon. No sign of acute diverticulitis. Intact urinar y bladder. No pelvic mass or free fluid. The uterus and ovaries are unremarkable. No destructive bone lesions. Small fat filled periumbilical hernia. CT/CT abdomen pelvis con [id number] IMPRESSION: 1. Mild hepatomegaly. 2. 3 mm nonobstructing stone in the left kidney. Probable tiny left renal cyst. 3. Colonic diverticulosis. No sign of acute diverticulitis. 4. No mass, lymphadenopathy or acute finding.
== END 2021-04-12 10:24 | disposition home or self-care (01) ==
PROVIDERS: PCP Family Medicine; Visit Provider Family Medicine
DX: R16.0 Hepatomegaly, not elsewhere classified (principal); R10.11 Right upper quadrant pain; R93.5 Abnormal findings on diagnostic imaging of other abdominal regions, including retroperitoneum; K57.90 Diverticulosis of intestine, part unspecified, without perforation or abscess without bleeding
CPT/HCPCS: 74176

== ENCOUNTER 2021-07-10 12:00 | Outpatient (CLI) | payer MEDICAID, SELFPAY | END 2021-07-10 12:01 | disposition home or self-care (01) | LOC: SLEEP 07-12 10:26 | PROVIDERS: PCP Family Medicine; Visit Provider Internal Medicine Critical Care Medicine | DX: J41.0 Simple chronic bronchitis (principal) | CPT/HCPCS: 94762 ==

== ENCOUNTER 2021-08-22 14:04 | Outpatient (CLI) | payer MEDICAID, SELFPAY ==
--- NOTE | 2021-08-22 14:19 | PFTS_ITS ---
Date of Study:08/22/21 Date of Dictation: MECHANICS: Forced vital capacity (FVC) is normal. Forced expiratory volume in one second (FEV1) is reduced. FEV1/FVC is reduced. FLOW VOLUME LOOP: Reduced flow at all lung volumes with scooping. LUNG VOLUMES: Total lung capacity (TLC) is normal. Residual volume (RV) is increased. DIFFUSING CAPACITY FOR CARBON MONOXIDE: Moderately reduced. INTERPRETATION: The postbronchodilator spirometry is consistent with moderate airflow obstruction. There is no significant postbronchodilator response. Lung volumes are consistent with air trapping. Gas exchange (DLCO) is moderately reduced. MTDD
== END 2021-08-22 14:05 | disposition home or self-care (01) ==
LOC: RT 14:05
PROVIDERS: PCP Family Medicine; Visit Provider Internal Medicine Critical Care Medicine
DX: J20.9 Acute bronchitis, unspecified (principal); F17.210 Nicotine dependence, cigarettes, uncomplicated
CPT/HCPCS: 94060; 94726; 94729; J7611

== ENCOUNTER → 2021-08-26 12:20 | Outpatient (BNVA) | payer MEDICAID, SELFPAY | PROVIDERS: PCP Family Medicine; Visit Provider Nurse Practitioner Family | DX: N39.0 Urinary tract infection, site not specified (principal) | CPT/HCPCS: 81003; 87086 ==

== ENCOUNTER 2021-11-19 06:00 | Outpatient (RCR) | payer MEDICAID, SELFPAY | END 2021-12-01 23:59 | disposition home or self-care (01) | LOC: MPT 06:00 | PROVIDERS: PCP Family Medicine; Referring Provider Family Medicine; Visit Provider Family Medicine | DX: M54.50 Low back pain, unspecified (principal); G89.29 Other chronic pain | CPT/HCPCS: 97110; 97161; 97530 ==

== ENCOUNTER 2021-12-02 06:00 | Outpatient (RCR) | payer MEDICAID, SELFPAY | END 2022-01-01 23:59 | disposition home or self-care (01) | LOC: MPT 06:00 | PROVIDERS: PCP Family Medicine; Referring Provider Family Medicine; Visit Provider Family Medicine | DX: M54.50 Low back pain, unspecified (principal); G89.29 Other chronic pain | CPT/HCPCS: 97110; 97530 ==

== ENCOUNTER → 2021-12-04 14:40 | Outpatient (BNVA) | payer MEDICAID, SELFPAY | PROVIDERS: PCP Family Medicine; Referring Provider Family Medicine; Visit Provider Podiatrist Foot & Ankle Surgery | DX: L60.8 Other nail disorders (principal); L60.3 Nail dystrophy; G62.9 Polyneuropathy, unspecified | CPT/HCPCS: 99203 ==

== ENCOUNTER 2022-01-02 06:00 | Outpatient (RCR) | payer MEDICAID, SELFPAY | END 2022-01-31 23:59 | disposition home or self-care (01) | LOC: MPT 06:00 | PROVIDERS: PCP Family Medicine; Referring Provider Family Medicine; Visit Provider Family Medicine | DX: M54.50 Low back pain, unspecified (principal); G89.29 Other chronic pain | CPT/HCPCS: 97110; 97530 ==

== ENCOUNTER → 2022-01-22 13:51 | Outpatient (BNVA) | payer MEDICAID, SELFPAY | PROVIDERS: PCP Family Medicine; Visit Provider Podiatrist Foot & Ankle Surgery | DX: L60.3 Nail dystrophy (principal); L60.8 Other nail disorders; G62.9 Polyneuropathy, unspecified | CPT/HCPCS: 99214 ==

== ENCOUNTER 2022-02-01 06:00 | Outpatient (RCR) | payer MEDICAID, SELFPAY | END 2022-03-03 23:59 | disposition home or self-care (01) | LOC: MPT 06:00 | PROVIDERS: PCP Family Medicine; Visit Provider Family Medicine | DX: M54.50 Low back pain, unspecified (principal); G89.29 Other chronic pain | CPT/HCPCS: 97110; 97530 ==

== ENCOUNTER → 2022-02-06 15:43 | Outpatient (BNVA) | payer MEDICAID, SELFPAY | PROVIDERS: PCP Family Medicine; Visit Provider Registered Nurse | DX: Z79.899 Other long term (current) drug therapy (principal); I10 Essential (primary) hypertension | CPT/HCPCS: 80053; 80061; 83036; 85025 ==

== ENCOUNTER 2022-02-14 14:28 | Outpatient (CLI) | payer MEDICAID, SELFPAY ==
--- NOTE | 2022-02-14 14:42 | MM_ITS ---
WS: [email or web address] BILATERAL 3D TOMOSYNTHESIS DIGITAL SCREENING MAMMOGRAPHY WITH CAD CLINICAL INFORMATION: SCREEN HISTORY: Screening mammogram. Bilateral breast soreness and lumps. COMPARISON: TECHNIQUE: Bilateral CC and MLO views. FINDINGS: The breasts are composed of heterogeneous fibroglandular density tissue, which can limit the detectio n of small underlying mass lesions. No suspicious mass, asymmetry, calcifications, or architectural d istortion. No evidence of malignancy. Scattered bilateral incidental punctate calcifications. MM/[place] [id number] IMPRESSION: BI-RADS: 2-Benign FOLLOW UP: 1 Year Follow-up Recommend return to annual screening mammography.
== END 2022-02-14 14:29 | disposition home or self-care (01) ==
PROVIDERS: PCP Family Medicine; Visit Provider Family Medicine
DX: Z12.31 Encounter for screening mammogram for malignant neoplasm of breast (principal)
CPT/HCPCS: 77063; 77067

== ENCOUNTER 2022-04-03 06:00 | Outpatient (RCR) | payer MEDICAID, SELFPAY | END 2022-05-03 23:59 | disposition home or self-care (01) | LOC: MPT 06:00 | PROVIDERS: PCP Family Medicine; Visit Provider Family Medicine | DX: M54.50 Low back pain, unspecified (principal); G89.29 Other chronic pain | CPT/HCPCS: 97110; 97530 ==

== ENCOUNTER → 2022-06-25 14:04 | Outpatient (BNVA) | payer MEDICAID, SELFPAY | PROVIDERS: PCP Family Medicine; Visit Provider Surgery | DX: R10.10 Upper abdominal pain, unspecified (principal); K21.9 Gastro-esophageal reflux disease without esophagitis; Z86.010 Personal history of colon polyps | CPT/HCPCS: 99203 ==

== ENCOUNTER → 2022-07-03 13:55 | Outpatient (BNVA) | payer MEDICAID, SELFPAY | PROVIDERS: PCP Family Medicine; Visit Provider Nurse Practitioner Women's Health | DX: N39.0 Urinary tract infection, site not specified (principal); Z12.4 Encounter for screening for malignant neoplasm of cervix | CPT/HCPCS: 81000; 87086; 87624 ==

== ENCOUNTER 2022-07-14 06:00 | Outpatient (RCR) | payer MEDICAID, SELFPAY | END 2022-08-01 23:59 | disposition home or self-care (01) | LOC: MPT 06:00 | PROVIDERS: PCP Family Medicine; Visit Provider Family Medicine | DX: M54.50 Low back pain, unspecified (principal); G89.29 Other chronic pain | CPT/HCPCS: 97110; 97162; 97530 ==

== ENCOUNTER → 2022-07-14 13:47 | Outpatient (BNVA) | payer MEDICAID, OTHER, SELFPAY | PROVIDERS: PCP Family Medicine; Visit Provider Nurse Practitioner Family | DX: N12 Tubulo-interstitial nephritis, not specified as acute or chronic (principal) | CPT/HCPCS: 81000; 87086 ==

== ENCOUNTER → 2022-07-23 17:02 | Outpatient (BNVA) | payer MEDICAID, SELFPAY | PROVIDERS: PCP Family Medicine; Visit Provider Nurse Practitioner Family | DX: N39.0 Urinary tract infection, site not specified (principal); N30.00 Acute cystitis without hematuria; R10.9 Unspecified abdominal pain | CPT/HCPCS: 81000; 87086 ==

== ENCOUNTER 2022-08-02 06:00 | Outpatient (RCR) | payer MEDICAID, SELFPAY | END 2022-08-31 23:59 | disposition home or self-care (01) | LOC: MPT 06:00 | PROVIDERS: PCP Family Medicine; Visit Provider Family Medicine | DX: M54.50 Low back pain, unspecified (principal); G89.29 Other chronic pain | CPT/HCPCS: 97110; 97530 ==

== ENCOUNTER → 2022-08-04 14:10 | Outpatient (BNVA) | payer MEDICAID, OTHER, SELFPAY | PROVIDERS: PCP Family Medicine; Visit Provider Emergency Medicine | DX: R30.0 Dysuria (principal); R11.0 Nausea; N30.10 Interstitial cystitis (chronic) without hematuria | CPT/HCPCS: 81000 ==

== ENCOUNTER → 2022-08-20 13:35 | Outpatient (BNVA) | payer MEDICAID, SELFPAY | PROVIDERS: PCP Family Medicine; Visit Provider Family Medicine | DX: J44.9 Chronic obstructive pulmonary disease, unspecified (principal); I10 Essential (primary) hypertension; R79.89 Other specified abnormal findings of blood chemistry; Z86.16 Personal history of COVID-19; R53.83 Other fatigue | CPT/HCPCS: 80053; 84443; 85025 ==

== ENCOUNTER → 2022-08-26 13:06 | Outpatient (BNVA) | payer MEDICAID, SELFPAY | PROVIDERS: PCP Family Medicine; Visit Provider Urology | DX: N30.10 Interstitial cystitis (chronic) without hematuria (principal) | CPT/HCPCS: 51798; 81003; 99213 ==

== ENCOUNTER 2022-09-01 06:00 | Outpatient (RCR) | payer MEDICAID, SELFPAY | END 2022-10-01 23:59 | disposition home or self-care (01) | LOC: MPT 06:00 | PROVIDERS: PCP Family Medicine; Visit Provider Family Medicine | DX: M54.50 Low back pain, unspecified (principal); G89.29 Other chronic pain | CPT/HCPCS: 97110; 97530 ==

== ENCOUNTER → 2022-09-06 17:13 | Outpatient (BNVA) | payer MEDICAID, SELFPAY | PROVIDERS: PCP Family Medicine; Visit Provider Nurse Practitioner Family | DX: N39.0 Urinary tract infection, site not specified (principal); R39.9 Unspecified symptoms and signs involving the genitourinary system | CPT/HCPCS: 81000 ==

== ENCOUNTER 2022-11-01 06:00 | Outpatient (RCR) | payer MEDICAID, SELFPAY | END 2022-12-01 23:59 | disposition home or self-care (01) | LOC: MPT 06:00 | PROVIDERS: PCP Family Medicine; Visit Provider Family Medicine | DX: M54.50 Low back pain, unspecified (principal); G89.29 Other chronic pain | CPT/HCPCS: 97110; 97530 ==

== ENCOUNTER → 2022-11-19 15:01 | Outpatient (BNVA) | payer MEDICAID, OTHER, SELFPAY | PROVIDERS: PCP Family Medicine; Visit Provider Family Medicine | DX: J44.9 Chronic obstructive pulmonary disease, unspecified (principal); J98.4 Other disorders of lung | CPT/HCPCS: 71046 ==

== ENCOUNTER → 2023-01-09 10:52 | Outpatient (BNVA) | payer MEDICAID, SELFPAY | PROVIDERS: PCP Family Medicine; Visit Provider Internal Medicine Pulmonary Disease | DX: J41.0 Simple chronic bronchitis (principal); F17.210 Nicotine dependence, cigarettes, uncomplicated; G47.34 Idiopathic sleep related nonobstructive alveolar hypoventilation; J43.9 Emphysema, unspecified | CPT/HCPCS: 99214 ==

== ENCOUNTER → 2023-02-23 13:56 | Outpatient (BNVA) | payer MEDICAID, SELFPAY | PROVIDERS: PCP Family Medicine; Visit Provider Family Medicine | DX: E78.00 Pure hypercholesterolemia, unspecified; J41.0 Simple chronic bronchitis | CPT/HCPCS: 80053; 80061; 83036 ==

== ENCOUNTER 2023-03-04 13:33 | Outpatient (CLI) | payer MEDICAID, SELFPAY ==
--- NOTE | 2023-03-04 13:38 | MM_ITS ---
WS: [email or web address] BILATERAL 3D TOMOSYNTHESIS DIGITAL SCREENING MAMMOGRAPHY WITH CAD CLINICAL INFORMATION: Z12.39 - Encounter for other screening for malignant neop... HISTORY: Screening mammogram. No current complaints. COMPARISON: 2021 TECHNIQUE: Bilateral CC and MLO views. FINDINGS: The breasts are composed of heterogeneous fibroglandular density tissue, which can limit the detectio n of small underlying mass lesions. No suspicious mass, asymmetry, calcifications, or architectural d istortion. No evidence of malignancy. Few incidental and punctate clustered calcifications. IMPRESSION: MM/[place] [id number] BI-RADS: 2-Benign FOLLOW UP: 1 Year Follow-up Recommend return to annual screening mammography.
--- NOTE | 2023-03-04 13:56 | XR_ITS ---
WS: [email or web address] SCREENING DEXA SCAN [place] CLINICAL INFORMATION: POSTMENOPAUSAL STATUS COMPARISON: None. FINDINGS: The L1-L4 bone mineral density measures 1.038 g/cm2. This corresponds to a T score score of -1.2 and Z score of -0.6. Left femoral neck bone mineral density measures 0.753 g/cm2. This corresponds to a T score of -2.0 an d Z score of -1.6. Right femoral neck bone mineral density measures 0.754 g/cm2. This corresponds to a T score -2.0of an d Z score of -1.5. Mean femoral neck bone mineral density measures 0.754 g/cm2. This corresponds to a T score of -2.0 an d Z score of -1.6. IMPRESSION: Osteopenia lumbar spine. Osteopenia femoral necks. Patient's FRAX calculated 10 year probability for major osteoporotic fracture is 12.5% and osteoporot ic hip fracture is 3.7%.
== END 2023-03-04 13:34 | disposition home or self-care (01) ==
PROVIDERS: PCP Family Medicine; Visit Provider Nurse Practitioner Women's Health
DX: Z12.31 Encounter for screening mammogram for malignant neoplasm of breast; Z13.820 Encounter for screening for osteoporosis; Z78.0 Asymptomatic menopausal state; M85.89 Other specified disorders of bone density and structure, multiple sites
CPT/HCPCS: 77063; 77067; 77080; 81000; 87086; 87624

== ENCOUNTER → 2023-03-30 14:38 | Outpatient (BNVA) | payer MEDICAID, SELFPAY | PROVIDERS: PCP Family Medicine; Visit Provider Obstetrics & Gynecology | DX: Z79.899 Other long term (current) drug therapy (principal) | CPT/HCPCS: 82306 ==

== ENCOUNTER → 2023-06-10 15:25 | Outpatient (BNVA) | payer MEDICAID, SELFPAY ==
[2023-04-30 12:04] VITALS: BP 123/83; BMI 33.2
== END ==
PROVIDERS: PCP Family Medicine; Visit Provider Obstetrics & Gynecology
DX: R87.619 Unspecified abnormal cytological findings in specimens from cervix uteri (principal); D25.9 Leiomyoma of uterus, unspecified
CPT/HCPCS: 76830

== ENCOUNTER → 2023-06-11 17:45 | Outpatient (BNVA) | payer MEDICAID, SELFPAY ==
[2023-04-30 12:04] VITALS: BP 123/83; BMI 33.2
== END ==
PROVIDERS: PCP Family Medicine; Visit Provider Emergency Medicine
DX: N39.0 Urinary tract infection, site not specified (principal)
CPT/HCPCS: 81000; 87086

== ENCOUNTER → 2023-09-03 15:17 | Outpatient (BNVA) | payer MEDICAID, SELFPAY ==
[2023-04-30 12:04] VITALS: BP 123/83; BMI 33.2
== END ==
PROVIDERS: PCP Family Medicine; Visit Provider Family Medicine
DX: J44.9 Chronic obstructive pulmonary disease, unspecified (principal); I10 Essential (primary) hypertension; J41.0 Simple chronic bronchitis; R10.9 Unspecified abdominal pain
CPT/HCPCS: 80053; 82977; 85025

== ENCOUNTER 2024-03-22 10:37 | Inpatient (IN) | payer MEDICAID, SELFPAY ==
[2024-03-21 15:29] VITALS: BP 123/83; BMI 33.2
[2024-03-22] VITALS (7 sets, daily range): BP systolic 132–186; BP diastolic 73–156; PULSE 83–115; RESP 18–22; TEMP 36.8–37.3; O2SAT 91–98
--- NOTE | 2024-03-22 11:00 | ECG_ITS ---
[facility] Test Date: 2024-03-22 Pat Name: Lauren Adorno Department: Room: 154 Gender: Female Eligibility Worker: : 1960 Requested By: Herminio Herzog Order Number: [id number] Franki MD: KATHERYN BEDOYA Measurements Intervals [place] Rate: 110 P: 67 CO: 126 QRS: 80 QRSD: 95 T: -3 QT: 325 QTc: 440 Interpretive Statements SINUS TACHYCARDIA NONSPECIFIC ST & T-WAVE ABNORMALITY No previous ECG available for comparison Electronically Signed On 03-23-2024 18:11:36 PANEL BUILDER by KATHERYN BEDOYA [email or web address]
--- NOTE | 2024-03-22 11:01 | W.ED.PSYCHS ---
HPI - Psych General: Chief Complaint: Psychiatric Symptoms Stated Complaint: SI Time Seen by Provider: 03/22/24 11:01 Related Data Home Medications Medication Instructions Recorded Confirmed omega-3 fatty acids 1,000 mg 1,000 mg PO BID 05/28/20 01/27/24 capsule (Fish Oil Concentrate) coenzyme Q10 75 mg capsule (Ultra 75 mg PO DAILY 01/24/21 01/27/24 CoQ10) cholecalciferol (vitamin D3) 50 50 mcg PO DAILY PRN 01/09/23 01/27/24 mcg (2,000 unit) capsule Previous Rx's Medication Instructions Recorded nebulizers #1 ea 03/01/21 Oxygen #1 ea 08/29/21 cholecalciferol (vitamin D3) 1,250 1,250 mcg PO .once a month #12 tabs 05/27/23 mcg (50,000 unit) tablet albuterol sulfate 90 mcg/actuation 2 puff inhalation Q6H PRN 09/03/23 aerosol inhaler (Proventil HFA) shortness of breath or wheezing #8.5 grams clonazepam 1 mg tablet 1 mg PO .qhs PRN insomnia 30 days 09/03/23 #30 tabs hydroxyzine HCl 25 mg tablet 25 mg PO BEDTIME PRN 09/03/23 itching/anxiety/insomnia #30 tabs ipratropium 0.5 mg-albuterol 3 mg 3 ml inhalation Q6H PRN wheezing 09/03/23 (2.5 mg base)/3 mL nebulization #180 mL soln oxcarbazepine 300 mg tablet 600 - 900 mg (2 - 3 x 300 mg) PO 09/03/23 DAILY 30 days #90 tabs quetiapine 400 mg tablet See Rx Instructions .Route 09/03/23 .COMPLEX #60 tabs ropinirole 5 mg tablet See Rx Instructions .Route 09/03/23 .COMPLEX #30 tabs zolpidem 10 mg tablet 10 mg PO .qhs 30 days #30 tabs 10/08/23 oxybutynin chloride 5 mg 5 mg PO DAILY #30 tabs 01/27/24 tablet,extended release 24 hr umeclidinium 62.5 mcg-vilanterol 1 inh inhalation DAILY #60 ea 01/27/24 25 mcg/actuation powdr for inhalation (Anoro Ellipta) Allergies Allergy/AdvReac Type Severity Reaction Status Date / Time Bleach (Sodium Hypochlorite) Allergy Severe anaphylaxis Verified 01/27/24 13:13 povidone-iodine Allergy Severe infection Verified 01/27/24 13:13 [From Betadine] escitalopram [From Lexapro] Allergy Mild ADR-Agitate Verified 01/27/24 13:13 d lithium Allergy Mild ALGY-Swell Verified 01/27/24 13:13 Lip/Tongue/Throat amitriptyline [From Elavil] Allergy Unknown family Verified 01/27/24 13:13 allergy cocaine Allergy Unknown Uncoded 01/27/24 13:13 IV dye AdvReac Severe ADR/ALGY-Fl Uncoded 01/27/24 13:13 ushing PFSH ED PFSH: Medical History Interstitial cystitis Anxiety Medication management History of colon polyps Borderline personality disorder Psychiatric care Recurrent UTI Interstitial cystitis Nicotine dependence, cigarettes, uncomplicated Cannabis abuse, uncomplicated (Unknown) Chronic post-traumatic stress disorder Tobacco use disorder Hx of deep venous thrombosis PTSD (post-traumatic stress disorder) Insomnia Essential hypertension GERD (gastroesophageal reflux disease) Restless leg syndrome Bipolar 1 disorder Hypercholesteremia COPD (chronic obstructive pulmonary disease) Surgical History Status post hysteroscopic polypectomy (~09/2017) Benign endocervical polyp performed by Dr. Perkins at [facility] Hx of colonoscopy with polypectomy History of bladder surgery H/O foot surgery Family History Father Cancer Pancreatic Grandmother CAD (coronary artery disease) Diabetes Hypertension Cancer Breast-Paternal Social History Smoking and tobacco/nicotine status: current every day tobacco/nicotine user cigarettes Packs smoked per day: 1 Years cigarettes smoked: 47 [ Other cigarette details: started age 12] Alcohol intake: current Alcohol intake frequency: holidays/special occasions only Substance/Drug Use: unknown Household members: significant other Female Reproductive History: Spontaneous abortions: No Course Vital Signs: Vital signs: Vital Signs Temperature 98.2 F 03/22/24 10:39 Pulse Rate 83 03/22/24 10:39 Respiratory Rate 18 03/22/24 10:39 Blood Pressure 186/156 03/22/24 10:39 Pulse Oximetry 98 03/22/24 10:39 Oxygen Delivery Me thod Room Air 03/22/24 10:39 Discharge Plan Discharge Condition: Stable Prescriptions: No Action Ultra CoQ10 75 mg capsule 75 mg PO DAILY cholecalciferol (vitamin D3) 50 mcg (2,000 unit) capsule 50 mcg PO DAILY PRN (DME) Oxygen See Rx Instructions .Route .MEDSUPPLY Qty: 1 0RF Rx Instructions: 2L/NC @ HS; albuterol sulfate [Proventil HFA] 90 mcg/actuation HFA aerosol inhaler 2 puff inhalation Q6H PRN (Reason: shortness of breath or wheezing) Qty: 8.5 11RF ipratropium-albuterol 0.5 mg-3 mg(2.5 mg base)/3 mL solution for nebulization 3 ml inhalation Q6H PRN (Reason: wheezing) Qty: 180 11RF zolpidem 10 mg tablet 10 mg PO .qhs 30 Days Qty: 30 3RF cholecalciferol (vitamin D3) 1,250 mcg (50,000 unit) tablet 1,250 mcg PO .once a month Qty: 12 1RF clonazepam 1 mg tablet 1 mg PO .qhs PRN (Reason: insomnia) 30 Days Qty: 30 4RF hydroxyzine HCl 25 mg tablet 25 mg PO BEDTIME PRN (Reason: itching/anxiety/insomnia) Qty: 30 4RF oxcarbazepine 300 mg tablet 600 - 900 mg PO DAILY 30 Days Qty: 90 3RF quetiapine 400 mg tablet See Rx Instructions .ROUTE .COMPLEX Qty: 60 4RF Dose Instruction: TAKE 2 TABLETS BY MOUTH AT BEDTIME Rx Instructions: TAKE 2 TABLETS BY MOUTH AT BEDTIME ropinirole 5 mg tablet See Rx Instructions .ROUTE .COMPLEX Qty: 30 4RF Dose Instruction: TAKE 1 TABLET BY MOUTH AT BEDTIME Rx Instructions: TAKE 1 TABLET BY MOUTH AT BEDTIME oxybutynin chloride 5 mg tablet extended release 24hr 5 mg PO DAILY Qty: 30 5RF Anoro Ellipta 62.5-25 mcg/actuation blister with device 1 inh inhalation DAILY Qty: 60 5RF omega-3 fatty acids [Fish Oil Concentrate] 1,000 mg capsule 1,000 mg PO BID (DME) nebulizers Misc See Rx Instructions .Route Qty: 1 0RF Rx Instructions: As directed Referrals: Shahnaz Cruz MD [Primary Care Provider] - Coding Level of Care Code ED Electrical Maintenance Engineer for Josh Clarke
--- NOTE | 2024-03-22 11:12 | ED.C_ITS ---
HPI - Psych 2 General: Chief Complaint: Psychiatric Symptoms Stated Complaint: SI Time Seen by Provider: 03/22/24 11:01 History of Present Illness: Patient was transported to the emergency department by EMS. She is being brought to our emergency department under 96-hour hold. The affidavit that accompanies the patient states that she continues to have suicidal thoughts. The affidavit signed by the [facility] judge directing the patient to be placed in a 96-hour hold for further evaluation. Patient states that she has been depressed all her life and in fact cites that she has been depressed since she is approximately 7 years old. She states that everyone in her family has a history of mental illness and depression. She states that she has been continuously suicide since childhood as well. She denies any specific plan but does admit that she has knives in the home that anyone could harm themselves with a knife. She apparently talked with staff member at [facility] yesterday and relayed some of her thoughts. She states she did not have a relationship with this individual and did not know her and she thinks that may have prompted the current events. She lives with her significant other and her son at home. She does smoke tobacco denies alcohol use. States she has been faithful to all her prescribed medications and takes them because they help her sleep. She states that she sleeps poorly and then there is some time that she will sleep maybe 10 to 12 hours a week. She states that she sometimes has manic episodes. Most recently she has had cough and congestion and she does not know where she is contracted this upper respiratory illness. She states she has not had any vomiting or diarrhea. She states her appetite is decreased but that is seemingly helpful for her as she likes to eat small amounts. She otherwise denies any specific complaints at this time. complaint: suicidal ideation and feels depressed Duration: constant History of same: Yes Associated symptoms: Reports depression and suicidal ideation; Deny auditory hallucinations, visual hallucinations or homicidal ideation Treatments prior to arrival: placed on mental health hold Related Data Home Medications Medication Instructions Recorded Confirmed coenzyme Q10 75 mg capsule (Ultra 75 mg PO DAILY 01/24/21 03/22/24 CoQ10) cholecalciferol (vitamin D3) 50 50 mcg PO DAILY 01/09/23 03/22/24 mcg (2,000 unit) capsule albuterol sulfate 90 mcg/actuation 2 puff inhalation Q6H PRN 03/22/24 03/22/24 aerosol inhaler (Ventolin HFA) Shortness Of Breath clonazepam 1 mg tablet 1 mg PO BEDTIME PRN insomnia 03/22/24 03/22/24 omega 3 350 mg-dha 235 mg-epa 90 1 cap PO BID 03/22/24 03/22/24 mg-fish oil 597 mg capsule,delay rel ([place]-3) quetiapine 400 mg tablet 800 mg PO BEDTIME 03/22/24 03/22/24 ropinirole 5 mg tablet 5 mg PO BEDTIME 03/22/24 03/22/24 zolpidem 10 mg tablet 10 mg PO BEDTIME 03/22/24 03/22/24 Previous Rx's Medication Instructions Recorded nebulizers #1 ea 03/01/21 Oxygen #1 ea 08/29/21 cholecalciferol (vitamin D3) 1,250 1,250 mcg PO .once a month #12 tabs 05/27/23 mcg (50,000 unit) tablet hydroxyzine HCl 25 mg tablet 25 mg PO BEDTIME PRN 09/03/23 itching/anxiety/insomnia #30 tabs ipratropium 0.5 mg-albuterol 3 mg 3 ml inhalation Q6H PRN wheezing 09/03/23 (2.5 mg base)/3 mL nebulization #180 mL soln oxcarbazepine 300 mg tablet 600 - 900 mg (2 - 3 x 300 mg) PO 09/03/23 DAILY 30 days #90 tabs oxybutynin chloride 5 mg 5 mg PO DAILY #30 tabs 01/27/24 tablet,extended release 24 hr umeclidinium 62.5 mcg-vilanterol 1 inh inhalation DAILY #60 ea 01/27/24 25 mcg/actuation powdr for inhalation (Anoro Ellipta) Allergies Allergy/AdvReac Type Severity Reaction Status Date / Time Bleach (Sodium Hypochlorite) Allergy Severe anaphylaxis Verified 01/27/24 13:13 povidone-iodine Allergy Severe infection Verified 01/27/24 13:13 [From Betadine] escitalopram [From Lexapro] Allergy Mild ADR-Agitate Verified 01/27/24 13:13 d lithium Allergy Mild ALGY-Swell Verified 01/27/24 13:13 Lip/Tongue/Throat amitriptyline [From Elavil] Allergy Unknown family Verified 01/27/24 13:13 allergy cocaine Allergy Unknown Uncoded 01/27/24 13:13 IV dye AdvReac Severe ADR/ALGY-Fl Uncoded 01/27/24 13:13 ushing Review of Systems 2 General: Reports: 10 or more systems reviewed and unremarkable except in HPI and below ENMT: Reports: nasal discharge and nasal congestion Resp: Reports: non-productive cough and wheezing Psych: Reports: depression, sleeping less and suicidal ideation; Denies: visual hallucinations, auditory hallucinations or homicidal ideation PFSH ED 2 PFSH: Medical History Interstitial cystitis Anxiety Medication management History of colon polyps Borderline personality disorder Psychiatric care Recurrent UTI Interstitial cystitis Nicotine dependence, cigarettes, uncomplicated Cannabis abuse, uncomplicated (Unknown) Chronic post-traumatic stress disorder Tobacco use disorder Hx of deep venous thrombosis PTSD (post-traumatic stress disorder) Insomnia Essential hypertension GERD (gastroesophageal reflux disease) Restless leg syndrome Bipolar 1 disorder Hypercholesteremia COPD (chronic obstructive pulmonary disease) Surgical History Status post hysteroscopic polypectomy (~09/2017) Benign endocervical polyp performed by Dr. Perkins at [facility] Hx of colonoscopy with polypectomy History of bladder surgery H/O foot surgery Family History Father Cancer Pancreatic Grandmother CAD (coronary artery disease) Diabetes Hypertension Cancer Breast-Paternal Social History Smoking and tobacco/nicotine status: current every day tobacco/nicotine user cigarettes Packs smoked per day: 1 Years cigarettes smoked: 47 [ Other cigarette details: started age 12] Alcohol intake: current Alcohol intake frequency: holidays/special occasions only Substance/Drug Use: unknown Household members: significant other Female Reproductive History: Spontaneous abortions: No Physical Exam 2 Narrative: EXAM NARRATIVE: The patient makes good eye contact. She speaks in very detailed run-on sentences. Her speech is goal-directed and fluent Const: COMMON NORMALS: no acute distress, patient oriented x3 and alert G ENERAL APPEARANCE: cooperative NUTRITIONAL APPEARANCE: overweight O RIENTATION/CONSCIOUSNESS: Yes oriented to person and Yes oriented to place HENMT: COMMON NORMALS: Normal nasal mucous membranes and turbinates present and oropharynx normal NOSE: Normal nasal mucous membranes and turbinates present MOUTH: moist mucous membranes abnormal Details: parched Eye: COMMON NORMALS: Equal, round and reactive pupils present, EOMs intact bilaterally and conjunctivae normal CONJUNCTIVA: Yes conjunctivae normal P UPIL: Yes Equal, round and reactive pupils present Neck/C-Spine: COMMON NORMALS: full ROM, no lymphadenopathy and no JVD Resp: COMMON NORMALS: normal respiratory effort, No retractions and No use of accessory muscles EFFORT & INSPECTION: Yes able to speak in complete sentences AUSCULTATION: wheezes (Few faint expiratory wheezes) Cardio: COMMON NORMALS: no JVD, regular rate, regular rhythm, No murmurs present (Cardio) and Peripheral pulses 2+ throughout RATE: regular rate R HYTHM: regular rhythm PERIPHERAL PULSES: Peripheral pulses 2+ throughout GI: COMMON NORMALS: Normal to inspection, nondistended, normoactive bowel sounds present and Soft to palpation PALPATION: Yes Soft to palpation Back/Pelvis: COMMON NORMALS: thoraco-lumbar ROM normal Extremity: COMMON NORMALS: normal to inspection, full ROM, capillary refill normal, no calf tenderness and no pedal edema Neuro: COMMON NORMALS: patient oriented x3, moves all extremities, no focal motor deficits and gait normal SENSORIUM/ORIENTATION: Yes alert, Yes oriented to person and Yes oriented to place SPEECH: speech normal Psych: COMMON NORMALS: speech normal ATTITUDE: Yes engaged A CTIVITY/MOTOR BEHAVIOR: Yes appropriate eye contact SPEECH: Yes normal speech, Yes excessive and Yes loud MOOD & AFFECT: Yes depressed mood and Yes irritable THOUGHT CONTENT: Yes Suicidality present MEMORY/COGNITION: Yes memory grossly intact INSIGHT: Fair insight present (Psych) JUDGEMENT: F air judgement present (Psych) Skin: COMMON NORMALS: no rashes or lesions noted and turgor normal GENERAL SKIN EXAM: no rashes or lesions noted and turgor normal Course 2 Reevaluation(s): Reevaluation #1: Additional illuminating history was obtained from cayla Davidson and other staff at [facility]. He reiterated that they had conversations with Ms. Nichols over the last few days and particularly noted that she seemed to be more energetic when she spoke of perhaps not being here in the subsequent week to have further discussions with them and that further heightened they are concerned about possible suicidality. Time: 12:21 Consultations: Consultation #1: Discussed with Dr. Magdaleno who agreed to be to admit the patient Time: 14:13 Vital Signs: Vital signs: Vital Signs Temperature 98.2 F 03/22/24 10:39 Pulse Rate 83 03/22/24 10:39 Respiratory Rate 18 03/22/24 10:39 Blood Pressure 151/86 03/22/24 12:22 Pulse Oximetry 95 03/22/24 13:52 Oxygen Delivery Me thod Room Air 03/22/24 13:52 MDM - Psych Medical Decision Making Patient presented to the emergency room as noted in the HPI. The patient has a longstanding history of depression and is currently being managed by [facility] as well as other therapy. She apparently has been faithful to her medications but has had more pervasive vocalization of her suicidality and suicide thoughts without specific plan. Patient was transported to the emergency department on a 96-hour hold for further evaluation. Patient was evaluated in the emergency department. She readily admits of chronic to department chronic depression and suicidal thoughts. No specific outlying plan at this time. Her medical screening examination did not reveal any obvious stigmata of any serious illness that would preclude additional mental health examination. Case was reviewed with the attending psychiatrist who agreed to place the patient inpatient status for further evaluation. Differential Diagnosis Likely suicidal ideation and depression Lab Data I reviewed the patient's lab results. 03/22/24 11:33 03/22/24 11:33 Radiology Impressions Chest X-Ray 03/22/24 11:30 IMPRESSION: 1. Pulmonary hyperinflation. No acute finding. Chronic changes. Laboratory Results WBC 9.70 10^3/uL (3.29-11.43) 03/22/24 11:33 RBC 4.93 10^6/uL (3.85-5.65) 03/22/24 11:33 Hgb 13.40 g/dL (11.27-16.99) 03/22/24 11:33 Hct 41.9 % (36-47) 03/22/24 11:33 MCV 85.0 fl (85-98) 03/22/24 11:33 MCH 27.2 pg (27-33) 03/22/24 11:33 MCHC 32.0 g/dL (30-55) 03/22/24 11:33 RDW 13.4 % (12.1-15.1) 03/22/24 11:33 Plt Count 166 10^3/cmm (157-399) 03/22/24 11:33 MPV 8.5 fL (7.4-10.4) 03/22/24 11:33 Neut % (Auto) 69.8 % 03/22/24 11:33 Lymph % (Auto) 17.2 % 03/22/24 11:33 [place] % (Auto) 8.2 % 03/22/24 11:33 Eos % (Auto) 3.8 % 03/22/24 11:33 Baso % (Auto) 0.8 % 03/22/24 11:33 Neut # (Auto) 6.76 10^3/uL (1.8-7.7) 03/22/24 11:33 Lymph # (Auto) 1.7 10^3/uL (0.8-4.8) 03/22/24 11:33 [place] # (Auto) 0.8 10^3/uL (0.2-0.9) 03/22/24 11:33 Eos # (Auto) 0.4 10^3/uL (0.0-0.8) 03/22/24 11:33 Baso # (Auto) 0.1 10^3/uL (0.0-0.1) 03/22/24 11:33 Nucleated RBC % (auto) 0 % 03/22/24 11:33 Nucleated RBCs # 0.0 /100WBC 03/22/24 11:33 Sodium 139 mmol/L (136-145) 03/22/24 11:33 Potassium 3.7 mmol/L (3.5-5.1) 03/22/24 11:33 Chloride 103 mmol/L (98-107) 03/22/24 11:33 Carbon Dioxide 25 mmol/L (22-29) 03/22/24 11:33 Anion Gap 14.7 (5-19) 03/22/24 11:33 BUN 6 mg/dL (8-23) L 03/22/24 11:33 Creatinine 0.7 mg/dL (0.5-0.9) 03/22/24 11:33 GFR Calculation 84.2 mL/min (90-130) L 03/22/24 11:33 Glucose 142 mg/dL (65-115) H 03/22/24 11:33 Calculated Osmolality 288 mOsm/kg (285-295) 03/22/24 11:33 Calcium 8.3 mg/dL (8.5-10.5) L 03/22/24 11:33 Total Bilirubin 0.2 mg/dL (0.15-1.2) 03/22/24 11:33 AST 14 U/L (0-32) 03/22/24 11:33 ALT 18 U/L (0-33) 03/22/24 11:33 Alkaline Phosphatase 97 U/L (35-105) 03/22/24 11:33 Total Protein 6.7 g/dL (6.6-8.7) 03/22/24 11:33 Albumin 4.0 g/dL (3.5-5.2) 03/22/24 11:33 Globulin 2.7 g/dL (1.3-4.6) 03/22/24 11:33 Salicylates < 0.3 mg/dL (3-10) L 03/22/24 11:33 Acetaminophen < 5.0 ug/mL (10-30) L 03/22/24 11:33 Ethyl Alcohol < 10 mg/dL (0-10) 03/22/24 11:33 All radiology interpretation(s) finalized by discharge EKG Data EKG 1: I personally reviewed and interpreted this EKG as follows: Interpretation: Contemporaneous review of resting EKG reveals a ventricular rate of 110 bpm. She has normal WA interval, QRS duration, corrected QT interval. Normal axis. She has nonspecific ST-T wave changes noted inferiorly. Discharge Plan Discharge Patient Disposition: Admitted As Inpatient Clinical Impression: Suicidal ideation Depression Qualifiers: Depression Type: major depressive disorder Major depression recurrence: r ecurrent Major depression episode severity: unspecified Condition: Stable Coding Level of Care Code ED Manager Internal for Josh Clarke
--- NOTE | 2024-03-22 11:30 | XR_ITS ---
WS: [id number] Exam: XR chest 1V portable [id number] Date/Time of Exam: 03/22/2024 11:32 AM Reason For Exam: cough Comparison 11/19/2022. Lungs are hyperinflated and clear. Chronic interstitial changes. Cardiomediastinal silhouette is unre markable for technique. No pleural effusions. Bony structures are intact. XR/XR chest 1V portable [id number] IMPRESSION: 1. Pulmonary hyperinflation. No acute finding. Chronic changes.
[2024-03-22 11:40] LABS: Basophils # 0.1 10^3/uL (0.0-0.1); Basophils % 0.8 %; Eosinophils # 0.4 10^3/uL (0.0-0.8); Eosinophils % 3.8 %; Hematocrit 41.9 % (36-47); Lymphocytes # 1.7 10^3/uL (0.8-4.8); Lymphocytes % 17.2 %; Mean Corpuscular Hemoglobin 27.2 pg (27-33); Mean Platelet Volume 8.5 fL (7.4-10.4); Monocytes # 0.8 10^3/uL (0.2-0.9); Monocytes % 8.2 %; Neutrophils # 6.76 10^3/uL (1.8-7.7); Neutrophils % 69.8 %; Nucleated Red Blood Cells % 0 %; Platelet Count 166 10^3/cmm (157-399); Red Blood Count 4.93 10^6/uL (3.85-5.65); Red Cell Distribution Width 13.4 % (12.1-15.1)
[2024-03-22 11:59] LABS: Alanine Aminotransferase 18 U/L (0-33); Alkaline Phosphatase 97 U/L (35-105); Anion Gap 14.7 (5-19); Aspartate Amino Transferase 14 U/L (0-32); Blood Urea Nitrogen 6 mg/dL (8-23); Calcium 8.3 mg/dL (8.5-10.5); Carbon Dioxide 25 mmol/L (22-29); Chloride 103 mmol/L (98-107); Globulin 2.7 g/dL (1.3-4.6); Glomerular Filtration Rate 84.2 mL/min (90-130); Glucose 142 mg/dL (65-115); Osmolality Calculated 288 mOsm/kg (285-295); Potassium 3.7 mmol/L (3.5-5.1); Sodium 139 mmol/L (136-145); Total Bilirubin 0.2 mg/dL (0.15-1.2); Total Protein 6.7 g/dL (6.6-8.7)
[2024-03-22 12:16] LABS: Acetaminophen < 5.0 ug/mL (10-30); Alcohol Level < 10 mg/dL (0-10); Salicylate < 0.3 mg/dL (3-10)
--- NOTE | 2024-03-22 13:18 | PC.NURSE ---
96 hr rights reviewed with patient @1115 with assistance of [facility] information security consultant Barry. Patient verbalized understanding of being on a 96 hr hold, however, was argumentative about time on which she should be discharged. HS educated on 96 hr terms. Patient then randomly yelled at HS about how she absolutely had to have Cranberry juice for her swollen urethra . She also stated she would not drink the municipal water as it is poisonous and would only drink organic bottled water . A sand which was also provided with her cranberry juice, and patient refused to eat it stating it was not organic. Pt then began yelling at [facility] ER asking if he knew what organic meant. Copy of 96 hr rights left with patient @bedside.
[2024-03-22 15:37] LABS: Covid PCR NEGATIVE (Negative); Influenza A NEGATIVE (Negative); Influenza B NEGATIVE (Negative); Respiratory Syncytial Virus Ce NEGATIVE (Negative)
[2024-03-22] MEDS: ipratropium-albuterol 3 mL Neb INHALATION (18:31)
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
[2024-03-22] MEDS: ropinirole 2 mg Tablet 5 MG PO (21:31)
[2024-03-22] MEDS: zolpidem 5 mg Tablet 10 MG PO (21:31)
[2024-03-22] MEDS: CLONazepam 1 mg Tablet PO (21:32)
[2024-03-22] MEDS: omega-3 fatty acids 1,000 mg Capsule 1 MG PO (21:43)
[2024-03-22] MEDS: quetiapine 100 mg Tablet 800 MG PO (22:14)
[2024-03-23 06:00] VITALS: BP 108/69; PULSE 98; RESP 20; TEMP 37; O2SAT 94
[2024-03-23] MEDS: cholecalciferol (vitamin D3) 1,000 unit Tablet 2000 UNIT PO (08:48)
[2024-03-23] MEDS: omega-3 fatty acids 1,000 mg Capsule 1000 MG PO (08:48)
--- NOTE | 2024-03-23 09:07 | PC.NURSE ---
DURING MEDICATION ADMINISTRATION THIS MORNING PT INFORMED THIS NURSE THAT SHE WILL ONLY TAKE HER TRILIPTAL AT NIGHT TIME AND THAT SHE DOES NOT NEED TO TAKE HER OXYBUYTIN. THIS NURSE OFFERED TO SEE IF WE COULD MOVE THE TRILIPTAL TO NIGHT TIME AND ASKED IF THE PT WAS REFUSING HER OXYBUTIN. PT AGREED THAT SHE WAS REFUSING HER OXYBUTIN. THIS NURSE CHARTED AND PHYSICIAN AGREED FOR TRILITAL TO BE MOVED TO NIGHTTIME DUE TO PT REFUSING. PT CURRENT NEEDS ARE MET AT THIS TIME.
[2024-03-23] MEDS: cetylpyridinium Lozenge 1 EACH MUCOUS MEM ×2 (09:10→11:09)
--- NOTE | 2024-03-23 09:11 | PC.NURSE ---
After the Third time since 0800 that the pt walked to the nurses station to request a wheelchair, a breathing treatment, a cough drop and to go home then to walk back to her room, pt up at nurses desk requesting a wheelchair because she is unable to walk to nurses desk and back this COMMUNITY LIVING SPECIALIST attempted to explain to pt that physical therapy would need to come down an asses her before we could give her a wheelchair for use on the unit., also this timber management assistant would talk with the Doctor to place the order for Physical Therapy. pt became agitated yelling that she would show me how much she needed the wheelchair I will just crawl back to my room you will see how much I need it. pt at that time went down to the floor an started to crawl to her room. this Weatherization Operations Manager did inform pt that did have the right to crawl if she wanted to. at that time pt crawled to her room.
[2024-03-23 09:21] VITALS: PULSE 98; RESP 20; O2SAT 92
[2024-03-23] MEDS: ipratropium-albuterol 3 mL Neb INHALATION (09:21)
[2024-03-23 09:35] VITALS: PULSE 95
[2024-03-23] MEDS: nicotine 21 mg Patch 1 PATCH TRANSDERMA (10:56)
--- NOTE | 2024-03-23 11:07 | PC.NURSE ---
pt walked up to nurses station demanding/speaking loudly- cough drop, to be sent to the other part of hospital due to her pain in her abdomen, leg pain from having to walk to and from her room, feet pain from having to walk. needing to have her oxygen. pt standing by wall across from nurses station waiting for cough drop.
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
[2024-03-23 14:00] VITALS: BP 115/81; PULSE 104; RESP 18; TEMP 37.5; O2SAT 92
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
[2024-03-23 14:33] VITALS: BP 108/69; PULSE 98; RESP 20; TEMP 37; O2SAT 94
== END 2024-03-23 15:05 | disposition home or self-care (01) | DRG 885 ==
LOC: ER 13:58 → NP 15:28
PROVIDERS: Physician Assistant; Admitting Provider Psychiatry & Neurology Psychiatry; Emergency Provider Emergency Medicine; PCP Family Medicine; Visit Provider Psychiatry & Neurology Psychiatry
DX: F33.9 Major depressive disorder, recurrent, unspecified (principal); R45.851 Suicidal ideations; F60.3 Borderline personality disorder; F41.9 Anxiety disorder, unspecified; F43.12 Post-traumatic stress disorder, chronic; F17.210 Nicotine dependence, cigarettes, uncomplicated; F12.10 Cannabis abuse, uncomplicated; I10 Essential (primary) hypertension; K21.9 Gastro-esophageal reflux disease without esophagitis; G25.81 Restless legs syndrome; E78.00 Pure hypercholesterolemia, unspecified; J44.9 Chronic obstructive pulmonary disease, unspecified; Z86.0100 Personal history of colon polyps, unspecified; Z81.8 Family history of other mental and behavioral disorders
CPT/HCPCS: 0241U; 36415; 71045; 80053; 80307; 85025; 93005; 94640; 97150; 97165; 99285

== ENCOUNTER → 2024-06-06 15:27 | Outpatient (BNVA) | payer MEDICAID, SELFPAY ==
[2024-03-21 15:29] VITALS: BP 123/83; BMI 33.2
== END ==
PROVIDERS: PCP Family Medicine; Visit Provider Family Medicine
DX: I10 Essential (primary) hypertension (principal); E78.00 Pure hypercholesterolemia, unspecified
CPT/HCPCS: 80053; 80061; 85025

== ENCOUNTER → 2024-06-16 13:31 | Outpatient (BNVA) | payer MEDICAID, SELFPAY ==
[2024-03-21 15:29] VITALS: BP 123/83; BMI 33.2
== END ==
PROVIDERS: PCP Family Medicine; Visit Provider Surgery
DX: K21.9 Gastro-esophageal reflux disease without esophagitis (principal); R10.10 Upper abdominal pain, unspecified; R10.11 Right upper quadrant pain; Z86.0100 Personal history of colon polyps, unspecified
CPT/HCPCS: 99214

== ENCOUNTER 2024-07-02 06:30 | Outpatient (RCR) | payer MEDICAID, SELFPAY ==
[2024-03-21 15:29] VITALS: BP 123/83; BMI 33.2
== END 2024-08-01 23:59 | disposition home or self-care (01) ==
LOC: MPT 06:30
PROVIDERS: PCP Family Medicine; Visit Provider Family Medicine
DX: M54.50 Low back pain, unspecified (principal); G89.29 Other chronic pain
CPT/HCPCS: 97110; 97161

== ENCOUNTER 2024-12-14 11:10 | Outpatient (CLI) | payer MEDICAID, SELFPAY ==
[2024-03-21 15:29] VITALS: BP 123/83; BMI 33.2
[2024-10-24 11:20] VITALS: BP 130/87; BMI 32.1
--- NOTE | 2024-12-14 11:20 | MM_ITS ---
WS: [id number] BILATERAL 3D TOMOSYNTHESIS DIGITAL SCREENING MAMMOGRAPHY WITH CAD CLINICAL INFORMATION: SCREENING HISTORY: Screening mammogram. No current complaints. COMPARISON: 2022 TECHNIQUE: Bilateral CC and MLO views. FINDINGS: The breasts are composed of heterogeneous fibroglandular density tissue, which can limit the detection of small underlying mass lesions. No suspicious mass, asymmetry, calcifications, or architectural distortion. No evidence of malignancy. A few incidental and clustered calcifications MM/MM scr tomosynthesis [id number] IMPRESSION: DENSITY: The breasts are heterogeneously dense, which may obscure small masses. BI-RADS: 2 - Benign FOLLOW UP: 1 Year Follow-up Recommend return to annual screening mammography.
== END 2024-12-14 11:11 | disposition home or self-care (01) ==
PROVIDERS: PCP Family Medicine; Visit Provider Family Medicine
DX: Z12.31 Encounter for screening mammogram for malignant neoplasm of breast (principal); R92.323 Mammographic fibroglandular density, bilateral breasts; R92.333 Mammographic heterogeneous density, bilateral breasts; R92.1 Mammographic calcification found on diagnostic imaging of breast
CPT/HCPCS: 77063; 77067

== ENCOUNTER 2025-01-02 06:30 | Outpatient (RCR) | payer MEDICAID, SELFPAY ==
[2024-10-24 11:20] VITALS: BP 130/87; BMI 32.1
== END 2025-01-31 23:59 | disposition home or self-care (01) ==
LOC: MPT 06:30
PROVIDERS: PCP Family Medicine; Visit Provider Family Medicine
DX: M54.50 Low back pain, unspecified (principal); G89.29 Other chronic pain
CPT/HCPCS: 97110; 97161

== ENCOUNTER → 2025-01-06 11:07 | Outpatient (BNVA) | payer MEDICAID, SELFPAY ==
[2024-10-24 11:20] VITALS: BP 130/87; BMI 32.1
== END ==
PROVIDERS: PCP Family Medicine; Visit Provider Student in an Organized Health Care Education/Training Program
DX: R03.0 Elevated blood-pressure reading, without diagnosis of hypertension (principal); Z12.11 Encounter for screening for malignant neoplasm of colon
CPT/HCPCS: 99204